=== PATIENT | female | born 1935 | race Caucasian/White ===

== ENCOUNTER 2018-08-04 12:09 | Observation (INO) | payer MEDICARE, OTHER ==
[2018-08-04] MEDS ORDERED: SODIUM CHLORIDE 0.9% 500 ML 500 ML IV ONE (13:04)
--- NOTE | 2018-08-04 13:08 | ED ---
General Adult HPI - General Chief complaint: Altered Mental Status Stated complaint: Confusion, Low BP Time Seen by Provider: 08/04/18 12:25 Source: family, RN notes reviewed Mode of arrival: wheelchair Limitations: no limitations - History of Present Illness Initial comments: This is an 82-year-old female presents emergency Department with her daughter patient was diagnosed with urinary tract infection last week and some slight confusion according to the daughter though she continues antibiotics the patient is more confused over the last 2 days. Daughter states yesterday she thought there was a little girl in the room and actually went to help her and fell over. According to the daughter the patient had no injury. Patient denies any pain daughter states the patient is not complaining of any pain to her patient has had no difficulty breathing or shortness of breath there's been no fever chills today. Daughter states couple days ago she did have a slight fever. There's been no areas of rash redness or breakdown. Rations had no vomiting or diarrhea. According to the daughter the patient has had a cough recently. - Related Data Home Medications Medication Instructions Recorded Confirmed Levothyroxine Sodium [Synthroid] 75 mcg PO DAILY@0600 04/04/14 08/04/18 Lisinopril [Prinivil] 20 mg PO DAILY@0600 04/04/14 08/04/18 Ondansetron [Zofran] 4 mg PO Q8H PRN 04/04/14 08/04/18 ALPRAZolam [Xanax] 0.25 mg PO HS 08/04/18 08/04/18 ALPRAZolam [Xanax] 0.25 mg PO Q4H PRN 08/04/18 08/04/18 Carbidopa-Levodopa 25-100 mg 2 tab PO BID@0900,1300 08/04/18 08/04/18 [Sinemet 25-100] Diltiazem Cd [Cardizem Cd] 180 mg PO HS 08/04/18 08/04/18 Domperidone 10mg 10 mg PO TID-W/MEALS 08/04/18 08/04/18 Escitalopram [Lexapro] 10 mg PO W/LUNCH 08/04/18 08/04/18 Estradiol [Yuvafem] 10 mcg VAGINAL MOWEFR 08/04/18 08/04/18 Membrasin 2 cap PO DAILY@0600 08/04/18 08/04/18 Mineral Oil 2 drops BOTH EARS DIRECTED 08/04/18 08/04/18 Nitrofurantoin Monohyd/M-Cryst 100 mg PO Q12HR 08/04/18 08/04/18 [Macrobid] Nystatin 100,000 Unit/gm Powd 1 applic TOPICAL BID PRN 08/04/18 08/04/18 [Mycostatin Powder] Polyethylene Glycol 3350 [Miralax] 8.5 gm PO Q72H 08/04/18 08/04/18 Warfarin [Coumadin] 5 mg PO DAILY 08/04/18 08/04/18 guaiFENesin [Mucinex] 600 mg PO HS 08/04/18 08/04/18 hydrALAZINE HCL 25 mg PO TID-W/MEALS 08/04/18 08/04/18 Allergies Allergy/AdvReac Type Severity Reaction Status Date / Time amlodipine [From Norvasc] Allergy Unknown Verified 08/04/18 14:11 cefdinir [From Omnicef] Allergy Nausea & Verified 08/04/18 14:11 Vomiting iodine Allergy Rapid Verified 08/04/18 14:11 Heart Rate levofloxacin [From Levaquin] Allergy Nausea & Verified 08/04/18 14:11 Vomiting & Diarrhea Penicillins Allergy Rash/Hives Verified 08/04/18 14:11 Sulfa (Sulfonamide Allergy HIIVES Verified 08/04/18 14:11 Antibiotics) sulfamethoxazole Allergy Unknown Verified 08/04/18 14:11 [From Bactrim] trimethoprim [From Bactrim] Allergy Unknown Verified 08/04/18 14:11 metoclopramide HCl AdvReac FACAIL Verified 08/04/18 14:11 [From Reglan] Review of Systems ROS Statement: Those systems with pertinent positive or pertinent negative responses have been documented in the HPI. ROS Other: All systems not noted in ROS Statement are negative. Past Medical History Past Medical History: GERD/Reflux, Hyperlipidemia, Hypertension, Rheumatoid Arthritis (RA), Thyroid Disorder Additional Past Medical History / Comment(s): "Has ascending aortic aneurysm" History of Any Multi-Drug Resistant Organisms: None Reported Past Surgical History: Appendectomy, Back Surgery, Orthopedic Surgery, Tonsillectomy Additional Past Surgical History / Comment(s): RIGHT LEG SURGERY, EGD Past Anesthesia/Blood Transfusion Reactions: No Reported Reaction Past Psychological History: No Psychological Hx Reported Smoking Status: Never smoker Past Alcohol Use History: None Reported Past Drug Use History: None Reported - Past Family History Father Family Medical History: Myocardial Infarction ([place]) Mother Family Medical History: No Reported History General Exam - General Exam Comments Initial Comments: GENERAL: Patient is well-developed and well-nourished. Patient is nontoxic and well- hydrated and is in no acute distress. ENT: Neck is soft and supple. No significant lymphadenopathy is noted. Oropharynx is clear. Moist mucous membranes. Neck has full range of motion without eliciting any pain. EYES: The sclera were anicteric and conjunctiva were pink and moist. Extraocular movements were intact and pupils were equal round and reactive to light. Eyelids were unremarkable. PULMONARY: Unlabored respirations. Patient has some crackles in the left base. CARDIOVASCULAR: There is a regular rate and rhythm without any murmurs gallops or rubs. ABDOMEN: Soft and nontender with normal bowel sounds. SKIN: Skin is clear with no lesions or rashes and otherwise unremarkable. NEUROLOGIC: Patient is alert and oriented 2. Cranial nerves II through XII are grossly intact. Motor and sensory are also intact. Normal speech, volume and content. Symmetrical smile. MUSCULOSKELETAL: Normal extremities with adequate strength and full range of motion. No lower extremity swelling or edema. No calf tenderness. LYMPHATICS: No significant lymphadenopathy is noted PSYCHIATRIC: Normal psychiatric evaluation. Limitations: no limitations Course Vital Signs 08/04/18 08/04/18 08/04/18 12:23 14:05 14:52 Temperature 98.3 F Pulse Rate 96 74 Respiratory 18 16 16 Rate Blood Pressure 87/58 115/69 142/75 O2 Sat by Pulse 96 97 98 Oximetry Medical Decision Making - Medical Decision Making EKG shows normal sinus rhythm at 67 bpm IA interval is 206 QRS is 86 QTC is 46 QTC is 429. Patient has no ST segment elevation or depression. CT of the brain shows no acute abnormality. I spoke with because he agreed to admit the patient admitted the patient wrote admitting orders. - Lab Data Result diagrams: 08/04/18 14:43 08/04/18 14:43 Lab Results 08/04/18 08/04/18 08/04/18 Range/Units 14:43 14:43 14:43 WBC 5.3 (3.8-10.6) k/uL RBC 4.66 (3.80-5.40) m/uL Hgb 12.8 (11.4-16.0) gm/dL Hct 43.0 (34.0-46.0) % MCV 92.3 (80.0-100.0) fL MCH 27.5 (25.0-35.0) pg MCHC 29.7 L (31.0-37.0) g/dL RDW 14.1 (11.5-15.5) % Plt Count 265 (150-450) k/uL Neutrophils % 63 % Lymphocytes % 26 % Monocytes % 7 % Eosinophils % 2 % Basophils % 0 % Neutrophils # 3.3 (1.3-7.7) k/uL Lymphocytes # 1.4 (1.0-4.8) k/uL Monocytes # 0.4 (0-1.0) k/uL Eosinophils # 0.1 (0-0.7) k/uL Basophils # 0.0 (0-0.2) k/uL Hypochromasia Slight PT 25.4 H (9.0-12.0) sec INR 2.6 H (<1.2) APTT 34.8 H (22.0-30.0) sec Sodium 138 (137-145) mmol/L Potassium 4.6 (3.5-5.1) mmol/L Chloride 105 (98-107) mmol/L Carbon Dioxide 26 (22-30) mmol/L Anion Gap 7 mmol/L BUN 20 H (7-17) mg/dL Creatinine 0.78 (0.52-1.04) mg/dL Est GFR (CKD-EPI)AfAm 82 (>60 ml/min/1.73 sqM) Est GFR (CKD-EPI)NonAf 71 (>60 ml/min/1.73 sqM) Glucose 101 H (74-99) mg/dL Plasma Lactic Acid Yonny (0.7-2.0) mmol/L Calcium 9.7 (8.4-10.2) mg/dL Total Bilirubin 0.5 (0.2-1.3) mg/dL AST 26 (14-36) U/L ALT 10 (9-52) U/L Alkaline Phosphatase 57 (38-126) U/L Troponin I (0.000-0.034) ng/mL Total Protein 5.8 L (6.3-8.2) g/dL Albumin 3.6 (3.5-5.0) g/dL Urine Color Urine Appearance (Clear) Urine pH (5.0-8.0) Ur Specific [place] (1.001-1.035) Urine Protein (Negative) Urine Glucose (UA) (Negative) Urine Ketones (Negative) Urine Blood (Negative) Urine Nitrite (Negative) Urine Bilirubin (Negative) Urine Urobilinogen (<2.0) mg/dL Ur Leukocyte Esterase (Negative) Urine RBC (0-5) /hpf Urine WBC (0-5) /hpf Ur Squamous Epith Cells (0-4) /hpf Urine Bacteria (None) /hpf Urine Mucus (None) /hpf Urine Opiates Screen (NotDetected) Ur Oxycodone Screen (NotDetected) Urine Methadone Screen (NotDetected) Ur Propoxyphene Screen (NotDetected) Ur Barbiturates Screen (NotDetected) U Tricyclic Antidepress (NotDetected) Ur Phencyclidine Scrn (NotDetected) Ur Amphetamines Screen (NotDetected) U Methamphetamines Scrn (NotDetected) U Benzodiazepines Scrn (NotDetected) Urine Cocaine Screen (NotDetected) U Marijuana (THC) Screen (NotDetected) 08/04/18 08/04/18 08/04/18 Range/Units 14:43 14:43 16:00 WBC (3.8-10.6) k/uL RBC (3.80-5.40) m/uL Hgb (11.4-16.0) gm/dL Hct (34.0-46.0) % MCV (80.0-100.0) fL MCH (25.0-35.0) pg MCHC (31.0-37.0) g/dL RDW (11.5-15.5) % Plt Count (150-450) k/uL Neutrophils % % Lymphocytes % % Monocytes % % Eosinophils % % Basophils % % Neutrophils # (1.3-7.7) k/uL Lymphocytes # (1.0-4.8) k/uL Monocytes # (0-1.0) k/uL Eosinophils # (0-0.7) k/uL Basophils # (0-0.2) k/uL Hypochromasia PT (9.0-12.0) sec INR (<1.2) APTT (22.0-30.0) sec Sodium (137-145) mmol/L Potassium (3.5-5.1) mmol/L Chloride (98-107) mmol/L Carbon Dioxide (22-30) mmol/L Anion Gap mmol/L BUN (7-17) mg/dL Creatinine (0.52-1.04) mg/dL Est GFR (CKD-EPI)AfAm (>60 ml/min/1.73 sqM) Est GFR (CKD-EPI)NonAf (>60 ml/min/1.73 sqM) Glucose (74-99) mg/dL Plasma Lactic Acid Yonny 1.0 (0.7-2.0) mmol/L Calcium (8.4-10.2) mg/dL Total Bilirubin (0.2-1.3) mg/dL AST (14-36) U/L ALT (9-52) U/L Alkaline Phosphatase (38-126) U/L Troponin I <0.012 (0.000-0.034) ng/mL Total Protein (6.3-8.2) g/dL Albumin (3.5-5.0) g/dL Urine Color Yellow Urine Appearance Clear (Clear) Urine pH 5.5 (5.0-8.0) Ur Specific [place] 1.010 (1.001-1.035) Urine Protein Negative (Negative) Urine Glucose (UA) Negative (Negative) Urine Ketones Negative (Negative) Urine Blood Negative (Negative) Urine Nitrite Negative (Negative) Urine Bilirubin Negative (Negative) Urine Urobilinogen <2.0 (<2.0) mg/dL Ur Leukocyte Esterase Trace H (Negative) Urine RBC 4 (0-5) /hpf Urine WBC 1 (0-5) /hpf Ur Squamous Epith Cells 3 (0-4) /hpf Urine Bacteria Rare H (None) /hpf Urine Mucus Occasional H (None) /hpf Urine Opiates Screen Not Detected (NotDetected) Ur Oxycodone Screen Not Detected (NotDetected) Urine Methadone Screen Not Detected (NotDetected) Ur Propoxyphene Screen Not Detected (NotDetected) Ur Barbiturates Screen Not Detected (NotDetected) U Tricyclic Antidepress Not Detected (NotDetected) Ur Phencyclidine Scrn Not Detected (NotDetected) Ur Amphetamines Screen Not Detected (NotDetected) U Methamphetamines Scrn Not Detected (NotDetected) U Benzodiazepines Scrn Detected H (NotDetected) Urine Cocaine Screen Not Detected (NotDetected) U Marijuana (THC) Screen Not Detected (NotDetected) Disposition Clinical Impression: Altered mental status Disposition: ADMITTED IP TO THIS HOSP Referrals: Scarlet Maldonado MD [Primary Care Provider] - 1-2 days Time of Disposition: 16:35
--- NOTE | 2018-08-04 14:38 | CT ---
EXAMINATION TYPE: CT brain wo con DATE OF EXAM: 08/04/2018 HISTORY: Confusion, Low Blood pressure CT DLP: 1126.4 mGycm. Automated Exposure Control for Dose Reduction was Utilized. TECHNIQUE: CT scan of the head is performed without contrast. COMPARISON: None. FINDINGS: There is no acute intracranial hemorrhage or midline shift identified. There is diffuse v entricular and sulcal prominence consistent with diffuse age-related cerebral atrophy. There is low- attenuation in the periventricular white matter consistent with chronic small vessel ischemic change. There is suspected 1.8 x 1.6 cm ossified left frontal meningioma axial image 25 along the anterior i nterhemispheric fissure The globes are intact and the visualized sinuses are clear. IMPRESSION: No acute intracranial hemorrhage or midline shift. There is mild to moderate diffuse ag e-related cerebral atrophy and chronic small vessel ischemic change as well as 1.8 cm ossified left f rontal meningioma all noted.
--- NOTE | 2018-08-04 14:50 | XR ---
EXAMINATION TYPE: XR chest 2V DATE OF EXAM: 08/04/2018 COMPARISON: Chest x-ray and CTA chest August 21, 2015 HISTORY: Weakness and altered mental status TECHNIQUE: Frontal and lateral views of the chest are obtained. FINDINGS: The osseous structures remain demineralized. S-shaped scoliosis is again seen. Retrocardia c opacity consistent with moderate to large size hiatal hernia is again identified. Cardiac silhouett e size is upper limits of normal with atherosclerotic and ectatic thoracic aorta. There is chronic pa renchymal change without suspicious focal airspace opacity, pleural effusion, or pneumothorax identif ied bilaterally. Some elevation and eventration right hemidiaphragm is redemonstrated. IMPRESSION: Chronic changes without new acute pulmonary process.
[2018-08-04 15:00] LABS: Basophils % (A) 0 %; Eosinophils # (A) 0.1 k/uL (0-0.7); Eosinophils % (A) 2 %; HGB 12.8 gm/dL (11.4-16.0); Hypochromasia Slight; Lymphocytes # (A) 1.4 k/uL (1.0-4.8); Lymphocytes % (A) 26 %; MCH 27.5 pg (25.0-35.0); MCHC 29.7 g/dL (31.0-37.0); MCV 92.3 fL (80.0-100.0); Mean Platelet Volume 6.7; Monocytes # (A) 0.4 k/uL (0-1.0); Monocytes % (A) 7 %; Neutrophils # (A) 3.3 k/uL (1.3-7.7); Neutrophils % (A) 63 %; Platelet Count 265 k/uL (150-450); RBC 4.66 m/uL (3.80-5.40); RDW 14.1 % (11.5-15.5); WBC 5.3 k/uL (3.8-10.6)
[2018-08-04 15:07] LABS: INR 2.6 (<1.2); Partial Thromboplastin Time 34.8 sec (22.0-30.0); Prothrombin Time 25.4 sec (9.0-12.0)
[2018-08-04 15:15] LABS: Albumin 3.6 g/dL (3.5-5.0); Calcium 9.7 mg/dL (8.4-10.2); Potassium 4.6 mmol/L (3.5-5.1); Total Bilirubin 0.5 mg/dL (0.2-1.3); Total Protein 5.8 g/dL (6.3-8.2)
[2018-08-04] MEDS ORDERED: NYSTATIN 100,000 UNIT/GM POWD 15 GM TOPICAL PRN (15:31)
[2018-08-04] MEDS ORDERED: QUEtiapine 25 MG TAB PO PRN (15:36)
--- NOTE | 2018-08-04 15:43 | P.HPIM ---
History of Present Illness 82-year-old pleasant female came in with possibility of confusion. Daughter brought her here. Because she believed her confusion is worse patient was treated for UTI about a week ago was subsequently discharged in spite of her treating UTI her symptoms continued to worse and patient was hallucinating had visual hallucinations saw a little girl in the room yesterday evening. 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 Patient had a recent C. diff history as well. UA is not available at this point of time patient is on Xanax. Patient was diagnosed with Parkinson's about 6-8 months ago. Patient doesn't appear to be dehydrated clinically. Review of Systems REVIEW OF SYSTEMS: CONSTITUTIONAL: No fever, no malaise, no fatigue. HEENT: No recent visual problems or hearing problems. Denied any sore throat. CARDIOVASCULAR: No chest pain, orthopnea, PND, no palpitations, no syncope. PULMONARY: No shortness of breath, no cough, no hemoptysis. GASTROINTESTINAL: No diarrhea, no nausea, no vomiting, no abdominal pain. NEUROLOGICAL: No headaches, no weakness, no numbness. HEMATOLOGICAL: Denies any bleeding or petechiae. GENITOURINARY: Denies any burning micturition, frequency, or urgency. MUSCULOSKELETAL/RHEUMATOLOGICAL: Denies any joint pain, swelling, or any muscle pain. ENDOCRINE: Denies any polyuria or polydipsia. The rest of the 14-point review of systems is negative. Past Medical History Past Medical History: GERD/Reflux, Hyperlipidemia, Hypertension, Rheumatoid Arthritis (RA), Thyroid Disorder Additional Past Medical History / Comment(s): "Has ascending aortic aneurysm" History of Any Multi-Drug Resistant Organisms: None Reported Past Surgical History: Appendectomy, Back Surgery, Orthopedic Surgery, Tonsillectomy Additional Past Surgical History / Comment(s): RIGHT LEG SURGERY, EGD Past Anesthesia/Blood Transfusion Reactions: No Reported Reaction Past Psychological History: No Psychological Hx Reported Smoking Status: Never smoker Past Alcohol Use History: None Reported Past Drug Use History: None Reported - Past Family History Father Family Medical History: Myocardial Infarction ([place]) Mother Family Medical History: No Reported History Medications and Allergies Home Medications Medication Instructions Recorded Confirmed Type Levothyroxine Sodium [Synthroid] 75 mcg PO DAILY@0600 04/04/14 08/04/18 History Lisinopril [Prinivil] 20 mg PO DAILY@0600 04/04/14 08/04/18 History Ondansetron [Zofran] 4 mg PO Q8H PRN 04/04/14 08/04/18 History ALPRAZolam [Xanax] 0.25 mg PO HS 08/04/18 08/04/18 History ALPRAZolam [Xanax] 0.25 mg PO Q4H PRN 08/04/18 08/04/18 History Carbidopa-Levodopa 25-100 mg 2 tab PO BID@0900,1300 08/04/18 08/04/18 History [Sinemet 25-100] Diltiazem Cd [Cardizem Cd] 180 mg PO HS 08/04/18 08/04/18 History Domperidone 10mg 10 mg PO TID-W/MEALS 08/04/18 08/04/18 History Escitalopram [Lexapro] 10 mg PO W/LUNCH 08/04/18 08/04/18 History Estradiol [Yuvafem] 10 mcg VAGINAL MOWEFR 08/04/18 08/04/18 History Membrasin 2 cap PO DAILY@0600 08/04/18 08/04/18 History Mineral Oil 2 drops BOTH EARS DIRECTED 08/04/18 08/04/18 History Nitrofurantoin Monohyd/M-Cryst 100 mg PO Q12HR 08/04/18 08/04/18 History [Macrobid] Nystatin 100,000 Unit/gm Powd 1 applic TOPICAL BID PRN 08/04/18 08/04/18 History [Mycostatin Powder] Polyethylene Glycol 3350 [Miralax] 8.5 gm PO Q72H 08/04/18 08/04/18 History Warfarin [Coumadin] 5 mg PO DAILY 08/04/18 08/04/18 History guaiFENesin [Mucinex] 600 mg PO HS 08/04/18 08/04/18 History hydrALAZINE HCL 25 mg PO TID-W/MEALS 08/04/18 08/04/18 History Allergies Allergy/AdvReac Type Severity Reaction Status Date / Time amlodipine [From Norvasc] Allergy Unknown Verified 08/04/18 14:11 cefdinir [From Omnicef] Allergy Nausea & Verified 08/04/18 14:11 Vomiting iodine Allergy Rapid Verified 08/04/18 14:11 Heart Rate levofloxacin [From Levaquin] Allergy Nausea & Verified 08/04/18 14:11 Vomiting & Diarrhea Penicillins Allergy Rash/Hives Verified 08/04/18 14:11 Sulfa (Sulfonamide Allergy HIIVES Verified 08/04/18 14:11 Antibiotics) sulfamethoxazole Allergy Unknown Verified 08/04/18 14:11 [From Bactrim] trimethoprim [From Bactrim] Allergy Unknown Verified 08/04/18 14:11 metoclopramide HCl AdvReac FACAIL Verified 08/04/18 14:11 [From Reglan] Physical Exam Vitals: Vital Signs Temp Pulse Resp BP Pulse Ox 08/04/18 14:52 74 16 142/75 98 08/04/18 14:05 16 115/69 97 08/04/18 12:23 98.3 F 96 18 87/58 96 Intake and Output 08/04/18 08/04/18 08/04/18 06:59 14:59 22:59 Other: Weight 58.967 kg PHYSICAL EXAMINATION: GENERAL: The patient is alert and oriented x3, not in any acute distress. Well developed, well nourished. Although does have memory difficulties HEENT: Pupils are round and equally reacting to light. EOMI. No scleral icterus. No conjunctival pallor. Normocephalic, atraumatic. No pharyngeal erythema. No thyromegaly. CARDIOVASCULAR: S1 and S2 present. No murmurs, rubs, or gallops. PULMONARY: Chest is clear to auscultation, no wheezing or crackles. ABDOMEN: Soft, nontender, nondistended, normoactive bowel sounds. No palpable organomegaly. MUSCULOSKELETAL: No joint swelling or deformity. EXTREMITIES: No cyanosis, clubbing, or pedal edema. NEUROLOGICAL: Gross neurological examination did not reveal any focal deficits. SKIN: No rashes. Results CBC & Chem 7: 08/04/18 14:43 08/04/18 14:43 Labs: Abnormal Lab Results - Last 24 Hours (Table) 0308/04/18 08/04/18 Range/Units 14:43 14:43 14:43 MCHC 29.7 L (31.0-37.0) g/dL PT 25.4 H (9.0-12.0) sec INR 2.6 H (<1.2) APTT 34.8 H (22.0-30.0) sec BUN 20 H (7-17) mg/dL Glucose 101 H (74-99) mg/dL Total Protein 5.8 L (6.3-8.2) g/dL Assessment and Plan Plan: -Altered mental status probably toxic encephalopathy from medications. Patient may have multifactorial encephalopathy and confusion related to Xanax and may be related to worsening Lewy body dementia. My suspicion is extremely low for her UTI with UA is pending patient does not have any other signs or symptoms of infection at this time patient is presently not dehydrated avoid Xanax Will use low-dose of atypical antipsychotic if needed for agitation or hallucinations. Although there still remains concerned of extrapyramidal side effects, considering patient's history of Parkinson's. Patient is also on Domperidone an d ondansetron because of concern for excessive renal side effects will watch the patient without these 2 medications. -Parkinson's: Continue her antiparkinsonian medications and avoid above- mentioned medications. [place]-gastroesophageal reflux disease -Hyperlipidemia -Hypertension -hypothyroidism Patient will need pharmacologic DVT prophylaxis
[2018-08-04] MEDS ORDERED: ESTRADIOL 10 MCG VAGINAL SCH (15:45)
[2018-08-04 16:20] LABS: Appearance,Urine Clear (Clear); Bacteria,Urine Rare /hpf; Bilirubin,Urine Negative (Negative); Blood,Urine Negative (Negative); Color,Urine Yellow; Glucose,Urine (UA) Negative (Negative); Ketones,Urine Negative (Negative); Leukocyte Esterase,Urine Trace (Negative); Mucus,Urine Occasional /hpf; Nitrite,Urine Negative (Negative); PH, Urine 5.5 (5.0-8.0); Protein,Urine Negative (Negative); RBC,Urine 4 /hpf (0-5); Squamous Epithelial Cell,Urine 3 /hpf (0-4); Urobilinogen,Urine <2.0 mg/dL (<2.0); WBC,Urine 1 /hpf (0-5)
[2018-08-04 16:27] LABS: Amphetamine Screen,Urine Not Detected (NotDetected); Barbiturate Screen,Urine Not Detected (NotDetected); Benzodiazepines Screen,Urine Detected (NotDetected); Cocaine Screen,Urine Not Detected (NotDetected); Methadone Screen, Urine Not Detected (NotDetected); Opiate Screen,Urine Not Detected (NotDetected); Oxycodone Screen, Urine Not Detected (NotDetected); Phencyclidine Screen,Urine Not Detected (NotDetected); Tricyclic Antidepressant,Urine Not Detected (NotDetected); Urn Cannabinoid Scrn Not Detected (NotDetected)
[2018-08-04] MEDS ORDERED: SODIUM CHLORIDE 0.9% 1,000 ML IV ONE (16:36)
[2018-08-04] MEDS ORDERED: ACETAMINOPHEN TAB 325 MG TAB PO STA (17:11)
[2018-08-04] MEDS ORDERED: DILTIAZEM CD 180 MG CAP.ER.24H PO SCH (21:00)
[2018-08-04] MEDS ORDERED: guaiFENesin 600 MG TABLET.ER PO SCH (21:00)
[2018-08-04] MEDS: hydrALAZINE HCL 25 MG TAB PO SCH (22:00)
[2018-08-05] MEDS ORDERED: LISINOPRIL 20 MG TAB PO SCH (06:00)
[2018-08-05] MEDS ORDERED: LEVOTHYROXINE 75 MCG TAB PO SCH (06:00)
[2018-08-05] MEDS ORDERED: [UNRECOGNIZED DRUG - OTHER] PO SCH (06:00)
[2018-08-05 06:31] VITALS: BP 119/70; PULSE 74; RESP 20; TEMP 97.7
[2018-08-05] MEDS: hydrALAZINE HCL 25 MG TAB PO SCH ×2 (09:35→11:48)
[2018-08-05] MEDS: CARBIDOPA-LEVODOPA 25-100 MG 1 EACH TAB PO SCH ×2 (09:35→11:48)
[2018-08-05 09:59] LABS: INR 2.5 (<1.2); Prothrombin Time 24.3 sec (9.0-12.0)
[2018-08-05] MEDS ORDERED: ESCITALOPRAM 10 MG TAB PO SCH (12:30)
--- NOTE | 2018-08-05 13:10 | P.DS ---
Providers Date of admission: 08/04/18 16:45 Attending physician: Simone Pool Consults: 08/05/18 10:37 Consult Physician Routine Consulting Provider: Les Jernigan Consult Reason/Comments: med reccomendation, hallucinations Do you want consulting provider notified?: Yes Primary care physician: Scarlet Maldonado [facility] Course: 82-year-old pleasant female came in with possibility of confusion. Daughter brought her here. Because she believed her confusion is worse patient was treated for UTI about a week ago was subsequently discharged in spite of her treating UTI her symptoms continued to worse and patient was hallucinating had visual hallucinations saw a little girl in the room yesterday evening. 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 Patient had a recent C. diff history as well. UA is not available at this point of time patient is on Xanax. Patient was diagnosed with Parkinson's about 6-8 months ago. Patient doesn't appear to be dehydrated clinically. 08/05/2018 Patient was having hallucinations. No evidence of any sepsis or urinary tract infection patient will not require any antibiotics patient Xanax will be discontinued. Psychiatrist was able to give recommendations on phone and he is recommending 12.5 twice a day of Seroquel. Patient's family will be instructed to discontinue Seroquel if she gets more drowsy lethargic but she'll be initiated on low-dose of Seroquel twice a day on scheduled basis. Patient is alert oriented 3 PHYSICAL EXAMINATION: GENERAL: The patient is alert and oriented x3, not in any acute distress. Thin built HEENT: Pupils are round and equally reacting to light. EOMI. No scleral icterus. No conjunctival pallor. Normocephalic, atraumatic. No pharyngeal erythema. No thyromegaly. CARDIOVASCULAR: S1 and S2 present. No murmurs, rubs, or gallops. PULMONARY: Chest is clear to auscultation, no wheezing or crackles. ABDOMEN: Soft, nontender, nondistended, normoactive bowel sounds. No palpable organomegaly. MUSCULOSKELETAL: No joint swelling or deformity. EXTREMITIES: No cyanosis, clubbing, or pedal edema. NEUROLOGICAL: Gross neurological examination did not reveal any focal deficits. SKIN: No rashes. Assessment and Plan Plan: -Altered mental status probably toxic encephalopathy from medications. Patient may have multifactorial encephalopathy and confusion related to Xanax and may be related to worsening Lewy body dementia. 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 -Parkinson's: Continue her antiparkinsonian medications and avoid above- mentioned medications. [place] will be discontinued and patient the can continue on as-needed basis Zofran. -gastroesophageal reflux disease -Hyperlipidemia -Hypertension -hypothyroidism -Atrial fibrillation probably paroxysmal rate controlled continue on Coumadin, therapeutic on Coumadin Plan - Discharge Summary New Discharge Prescriptions: New QUEtiapine [SEROquel] 12.5 mg PO HS PRN #30 tab PRN Reason: Agitation Continue Ondansetron [Zofran] 4 mg PO Q8H PRN PRN Reason: Nausea Lisinopril [Prinivil] 20 mg PO DAILY@0600 Levothyroxine Sodium [Synthroid] 75 mcg PO DAILY@0600 Membrasin 2 cap PO DAILY@0600 Carbidopa-Levodopa 25-100 mg [Sinemet 25-100 mg] 2 tab PO BID@0900,1300 Diltiazem Cd [Cardizem CD] 180 mg PO HS Escitalopram [Lexapro] 10 mg PO W/LUNCH Estradiol [Yuvafem] 10 mcg VAGINAL MOWEFR guaiFENesin [Mucinex] 600 mg PO HS Mineral Oil 2 drops BOTH EARS DIRECTED Nystatin 100,000 Unit/gm Powd [Mycostatin Powder] 1 applic TOPICAL BID PRN PRN Reason: RASH UNDER BREAST Polyethylene Glycol 3350 [Miralax] 8.5 gm PO Q72H Warfarin [Coumadin] 5 mg PO DAILY Discontinued Domperidone 10mg 10 mg PO TID-W/MEALS ALPRAZolam [Xanax] 0.25 mg PO Q4H PRN PRN Reason: Anxiety ALPRAZolam [Xanax] 0.25 mg PO HS hydrALAZINE HCL 25 mg PO TID-W/MEALS Nitrofurantoin Monohyd/M-Cryst [Macrobid] 100 mg PO Q12HR Discharge Medication List Levothyroxine Sodium [Synthroid] 75 mcg PO DAILY@0600 04/04/14 [History] Lisinopril [Prinivil] 20 mg PO DAILY@0600 04/04/14 [History] Ondansetron [Zofran] 4 mg PO Q8H PRN 04/04/14 [History] Carbidopa-Levodopa 25-100 mg [Sinemet 25-100 mg] 2 tab PO BID@0900,1300 08/04/18 [History] Diltiazem Cd [Cardizem CD] 180 mg PO HS 08/04/18 [History] Escitalopram [Lexapro] 10 mg PO W/LUNCH 08/04/18 [History] Estradiol [Yuvafem] 10 mcg VAGINAL MOWEFR 08/04/18 [History] Membrasin 2 cap PO DAILY@0600 08/04/18 [History] Mineral Oil 2 drops BOTH EARS DIRECTED 08/04/18 [History] Nystatin 100,000 Unit/gm Powd [Mycostatin Powder] 1 applic TOPICAL BID PRN 08/04/18 [History] Polyethylene Glycol 3350 [Miralax] 8.5 gm PO Q72H 08/04/18 [History] Warfarin [Coumadin] 5 mg PO DAILY 08/04/18 [History] guaiFENesin [Mucinex] 600 mg PO HS 08/04/18 [History] QUEtiapine [SEROquel] 12.5 mg PO HS PRN #30 tab 08/05/18 [Rx] Follow up Appointment(s)/Referral(s): Scarlet Maldonado MD [Primary Care Provider] - 3 Days Patient Instructions/Handouts: Dementia (GEN) Activity/Diet/Wound Care/Special Instructions: ACTIVITY AND DIET TOLERATED. RECOMMEND NOT TAKING XANAX. Discharge Disposition: OTHER INSTITUTION NOT DEFINED
[2018-08-05] MEDS ORDERED: WARFARIN 5 MG TAB PO SCH (18:00)
[2018-08-05] MEDS ORDERED: QUEtiapine 25 MG TAB PO SCH (21:00)
[2018-08-06] MEDS ORDERED: POLYETHYLENE GLYCOL 3350 17 GM POWD.PACK PO PRN (09:00)
== END 2018-08-05 15:44 | disposition home or self-care (01) ==
LOC: EC 12:09 → 4MS4W 16:45
PROVIDERS: ADMIT Internal Medicine; ATTEND Internal Medicine
DX: R41.82 Altered mental status, unspecified (principal); R44.1 Visual hallucinations; G20 Parkinson's disease; R05 Cough; K21.9 Gastro-esophageal reflux disease without esophagitis; E78.5 Hyperlipidemia, unspecified; I10 Essential (primary) hypertension; E03.9 Hypothyroidism, unspecified; I48.91 Unspecified atrial fibrillation; F03.90 Unspecified dementia, unspecified severity, without behavioral disturbance, psychotic disturbance, mood disturbance, and anxiety; L43.9 Lichen planus, unspecified; M06.9 Rheumatoid arthritis, unspecified; I71.2 Thoracic aortic aneurysm, without rupture; Z79.890 Hormone replacement therapy; Z79.899 Other long term (current) drug therapy; Z79.01 Long term (current) use of anticoagulants; Z88.1 Allergy status to other antibiotic agents; Z88.0 Allergy status to penicillin; Z88.2 Allergy status to sulfonamides; Z88.8 Allergy status to other drugs, medicaments and biological substances; Z91.048 Other nonmedicinal substance allergy status; Z82.49 Family history of ischemic heart disease and other diseases of the circulatory system; Z91.81 History of falling; Z87.440 Personal history of urinary (tract) infections; Z86.19 Personal history of other infectious and parasitic diseases
CPT/HCPCS: 96361 ×3; 96360; 99285; 36415; 93005; 97166; 80053; 83605; 84484; 85025; 85610 ×2; 85730; 81001; 87040; 80306; 71046; 70450; G0378 ×2

== ENCOUNTER 2019-12-23 06:56 | Observation (INO) | payer MEDICARE, OTHER ==
--- NOTE | 2019-12-23 07:19 | ED ---
Fall HPI - General Chief Complaint: Fall Stated Complaint: Fall Time Seen by Provider: 12/23/19 07:00 Source: patient, EMS, RN notes reviewed Mode of arrival: EMS Limitations: no limitations - History of Present Illness Initial Comments: This an 84-year-old female presents emergency Department with chief complaint of fall. Patient was found by staff at [facility] the ground. They believe she fell around 6 AM. Patient states that she has a mild headache in her hips her. Patient does have some baseline confusion related to dementia. Patient denies any nausea vomiting diarrhea constipation. Denies any bleeding. Patient reports "thinners. Patient denies any lower extremity pain, upper extremity pain. - Related Data Home Medications Medication Instructions Recorded Confirmed Levothyroxine Sodium [Synthroid] 75 mcg PO DAILY@0600 04/04/14 08/04/18 Ondansetron [Zofran] 4 mg PO Q8H PRN 04/04/14 08/04/18 lisinopriL [Prinivil] 20 mg PO DAILY@0600 04/04/14 08/04/18 Carbidopa-Levodopa 25-100 mg 2 tab PO BID@0900,1300 08/04/18 08/04/18 [Sinemet 25-100 mg] Diltiazem Cd [Cardizem CD] 180 mg PO HS 08/04/18 08/04/18 Escitalopram [Lexapro] 10 mg PO W/LUNCH 08/04/18 08/04/18 Estradiol [Yuvafem] 10 mcg VAGINAL MOWEFR 08/04/18 08/04/18 Membrasin 2 cap PO DAILY@0600 08/04/18 08/04/18 Mineral Oil 2 drops BOTH EARS DIRECTED 08/04/18 08/04/18 Nystatin 100,000 Unit/gm Powd 1 applic TOPICAL BID PRN 08/04/18 08/04/18 [Mycostatin Powder] Polyethylene Glycol 3350 [Miralax] 8.5 gm PO Q72H 08/04/18 08/04/18 Warfarin [Coumadin] 5 mg PO DAILY 08/04/18 08/04/18 guaiFENesin [Mucinex] 600 mg PO HS 08/04/18 08/04/18 Previous Rx's Medication Instructions Recorded QUEtiapine [SEROquel] 12.5 mg PO HS PRN #30 tab 08/05/18 Allergies Allergy/AdvReac Type Severity Reaction Status Date / Time amlodipine [From Norvasc] Allergy Unknown Verified 08/04/18 14:11 cefdinir [From Omnicef] Allergy Nausea & Verified 08/04/18 14:11 Vomiting iodine Allergy Rapid Verified 08/04/18 14:11 Heart Rate levofloxacin [From Levaquin] Allergy Nausea & Verified 08/04/18 14:11 Vomiting & Diarrhea Penicillins Allergy Rash/Hives Verified 08/04/18 14:11 Sulfa (Sulfonamide Allergy HIIVES Verified 08/04/18 14:11 Antibiotics) sulfamethoxazole Allergy Unknown Verified 08/04/18 14:11 [From Bactrim] trimethoprim [From Bactrim] Allergy Unknown Verified 08/04/18 14:11 metoclopramide HCl AdvReac FACAIL Verified 08/04/18 14:11 [From Reglan] Review of Systems ROS Statement: Those systems with pertinent positive or pertinent negative responses have been documented in the HPI. ROS Other: All systems not noted in ROS Statement are negative. Past Medical History Past Medical History: GERD/Reflux, Hyperlipidemia, Hypertension, Rheumatoid Arthritis (RA), Thyroid Disorder Additional Past Medical History / Comment(s): "Has ascending aortic aneurysm" History of Any Multi-Drug Resistant Organisms: None Reported Past Surgical History: Appendectomy, Back Surgery, Orthopedic Surgery, Tonsillectomy Additional Past Surgical History / Comment(s): RIGHT LEG SURGERY, EGD Past Anesthesia/Blood Transfusion Reactions: No Reported Reaction Past Psychological History: No Psychological Hx Reported Past Alcohol Use History: None Reported Past Drug Use History: None Reported - Past Family History Father Family Medical History: Myocardial Infarction (MT) Mother Family Medical History: No Reported History General Exam Limitations: altered mental status General appearance: alert, in no apparent distress, other (No obvious injuries) Head exam: Present: atraumatic, normocephalic, normal inspection Eye exam: Present: normal appearance, PERRL, EOMI. Absent: scleral icterus, conjunctival injection, periorbital swelling ENT exam: Present: normal exam, normal oropharynx, mucous membranes moist, TM's normal bilaterally Neck exam: Present: normal inspection. Absent: tenderness, meningismus, full ROM (Patient in c-collar), lymphadenopathy Respiratory exam: Present: normal lung sounds bilaterally. Absent: respiratory distress, wheezes, rales, rhonchi, stridor Cardiovascular Exam: Present: regular rate, normal rhythm, normal heart sounds. Absent: systolic murmur, diastolic murmur, rubs, gallop, clicks GI/Abdominal exam: Present: soft, normal bowel sounds. Absent: distended, tenderness, guarding, rebound, rigid Neurological exam: Present: alert, CN II-XII intact. Absent: oriented X3 Skin exam: Present: warm, dry, intact, normal color. Absent: rash Course Vital Signs 12/23/19 06:57 Temperature 98.1 F Pulse Rate 88 Respiratory 16 Rate Blood Pressure 160/87 O2 Sat by Pulse 95 Oximetry Medical Decision Making - Lab Data Result diagrams: 12/23/19 07:32 12/23/19 07:32 Lab Results 12/23/19 12/23/19 12/23/19 Range/Units 07:32 07:32 07:32 WBC 9.1 (3.8-10.6) k/uL RBC 5.06 (3.80-5.40) m/uL Hgb 14.3 (11.4-16.0) gm/dL Hct 44.8 (34.0-46.0) % MCV 88.4 (80.0-100.0) fL MCH 28.3 (25.0-35.0) pg MCHC 32.0 (31.0-37.0) g/dL RDW 15.0 (11.5-15.5) % Plt Count 257 (150-450) k/uL Neutrophils % 84 % Lymphocytes % 8 % Monocytes % 4 % Eosinophils % 2 % Basophils % 0 % Neutrophils # 7.7 (1.3-7.7) k/uL Lymphocytes # 0.8 L (1.0-4.8) k/uL Monocytes # 0.4 (0-1.0) k/uL Eosinophils # 0.2 (0-0.7) k/uL Basophils # 0.0 (0-0.2) k/uL Sodium 139 (137-145) mmol/L Potassium 4.4 (3.5-5.1) mmol/L Chloride 105 (98-107) mmol/L Carbon Dioxide 26 (22-30) mmol/L Anion Gap 8 mmol/L BUN 19 H (7-17) mg/dL Creatinine 0.73 (0.52-1.04) mg/dL Est GFR (CKD-EPI)AfAm 88 (>60 ml/min/1.73 sqM) Est GFR (CKD-EPI)NonAf 76 (>60 ml/min/1.73 sqM) Glucose 120 H (74-99) mg/dL Plasma Lactic Acid Yonny 1.6 (0.7-2.0) mmol/L Calcium 9.7 (8.4-10.2) mg/dL Total Bilirubin 0.7 (0.2-1.3) mg/dL AST 35 (14-36) U/L ALT 19 (4-34) U/L Alkaline Phosphatase 76 (38-126) U/L Creatine Kinase 351 H (30-135) U/L Total Protein 6.9 (6.3-8.2) g/dL Albumin 4.3 (3.5-5.0) g/dL Urine Color Urine Appearance (Clear) Urine pH (5.0-8.0) Ur Specific Gilbert (1.001-1.035) Urine Protein (Negative) Urine Glucose (UA) (Negative) Urine Ketones (Negative) Urine Blood (Negative) Urine Nitrite (Negative) Urine Bilirubin (Negative) Urine Urobilinogen (<2.0) mg/dL Ur Leukocyte Esterase (Negative) Urine WBC (0-5) /hpf Ur Squamous Epith Cells (0-4) /hpf Urine Bacteria (None) /hpf Urine Mucus (None) /hpf 12/23/19 Range/Units 08:15 WBC (3.8-10.6) k/uL RBC (3.80-5.40) m/uL Hgb (11.4-16.0) gm/dL Hct (34.0-46.0) % MCV (80.0-100.0) fL MCH (25.0-35.0) pg MCHC (31.0-37.0) g/dL RDW (11.5-15.5) % Plt Count (150-450) k/uL Neutrophils % % Lymphocytes % % Monocytes % % Eosinophils % % Basophils % % Neutrophils # (1.3-7.7) k/uL Lymphocytes # (1.0-4.8) k/uL Monocytes # (0-1.0) k/uL Eosinophils # (0-0.7) k/uL Basophils # (0-0.2) k/uL Sodium (137-145) mmol/L Potassium (3.5-5.1) mmol/L Chloride (98-107) mmol/L Carbon Dioxide (22-30) mmol/L Anion Gap mmol/L BUN (7-17) mg/dL Creatinine (0.52-1.04) mg/dL Est GFR (CKD-EPI)AfAm (>60 ml/min/1.73 sqM) Est GFR (CKD-EPI)NonAf (>60 ml/min/1.73 sqM) Glucose (74-99) mg/dL Plasma Lactic Acid Yonny (0.7-2.0) mmol/L Calcium (8.4-10.2) mg/dL Total Bilirubin (0.2-1.3) mg/dL AST (14-36) U/L ALT (4-34) U/L Alkaline Phosphatase (38-126) U/L Creatine Kinase (30-135) U/L Total Protein (6.3-8.2) g/dL Albumin (3.5-5.0) g/dL Urine Color Yellow Urine Appearance Cloudy H (Clear) Urine pH 6.5 (5.0-8.0) Ur Specific Gilbert 1.020 (1.001-1.035) Urine Protein Trace H (Negative) Urine Glucose (UA) Negative (Negative) Urine Ketones Trace H (Negative) Urine Blood Negative (Negative) Urine Nitrite Negative (Negative) Urine Bilirubin Negative (Negative) Urine Urobilinogen <2.0 (<2.0) mg/dL Ur Leukocyte Esterase Moderate H (Negative) Urine WBC 42 H (0-5) /hpf Ur Squamous Epith Cells <1 (0-4) /hpf Urine Bacteria Occasional H (None) /hpf Urine Mucus Occasional H (None) /hpf Disposition Clinical Impression: Fall, Weakness, UTI (urinary tract infection), Confusion Disposition: ADMITTED IP TO THIS HOSP Condition: Fair Referrals: Scarlet Maldonado MD [Primary Care Provider] - 1-2 days
[2019-12-23 07:42] LABS: Basophils % (A) 0 %; Eosinophils # (A) 0.2 k/uL (0-0.7); Eosinophils % (A) 2 %; HCT 44.8 % (34.0-46.0); HGB 14.3 gm/dL (11.4-16.0); Lymphocytes # (A) 0.8 k/uL (1.0-4.8); Lymphocytes % (A) 8 %; MCH 28.3 pg (25.0-35.0); MCV 88.4 fL (80.0-100.0); Mean Platelet Volume 7.5; Monocytes # (A) 0.4 k/uL (0-1.0); Monocytes % (A) 4 %; Neutrophils # (A) 7.7 k/uL (1.3-7.7); Neutrophils % (A) 84 %; Platelet Count 257 k/uL (150-450); RBC 5.06 m/uL (3.80-5.40); WBC 9.1 k/uL (3.8-10.6)
[2019-12-23 07:59] LABS: Albumin 4.3 g/dL (3.5-5.0); Calcium 9.7 mg/dL (8.4-10.2); Potassium 4.4 mmol/L (3.5-5.1); Total Bilirubin 0.7 mg/dL (0.2-1.3); Total Protein 6.9 g/dL (6.3-8.2)
--- NOTE | 2019-12-23 08:21 | CT ---
EXAMINATION TYPE: CT brain rosaliaine wo con DATE OF EXAM: 12/23/2019 COMPARISON: CT brain August 04, 2018 HISTORY: Fall injury with headache and neck pain. CT DLP: 1409 mGycm. Automated Exposure Control for Dose Reduction was Utilized. TECHNIQUE: CT scan of the head and cervical spine are performed without contrast. FINDINGS: There is no acute intracranial hemorrhage or midline shift identified. Diffuse ventricula r and sulcal prominence. Low attenuation in the deep and periventricular white matter . 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 The calvarium is intact. Small mucous retention cyst or polyp in the inferior left maxill courtney sinus otherwise the globes are intact and the visualized sinuses are clear. Osseous structures are demineralized. Cervical spine is visualized in its entirety from C1 through up per thoracic levels and demonstrates stable and straightened alignment without evidence of acute frac ture or dislocation. Prevertebral soft tissue appears within normal limits. The C1-C2 articulation is within normal limits on the coronal images. Vertebral body heights are maintained. Moderate to se kirt multilevel disc space narrowing with mild to moderate multilevel spurring. Posterior spur disc c omplexes efface the anterior thecal sac at C3-C4 and to a greater degree at C5-C6 levels. Axial image s show multilevel uncovertebral facet degenerative changes contributing to multilevel bilateral neura l foraminal narrowing. Lung apices show focal scarring in the posterior aspect of the right upper lob e. There is moderate calcified plaque bilateral carotid bulb level. IMPRESSION: 1. There is no acute fracture or dislocation evident in the cervical spine. 2. No acute intracranial hemorrhage or midline shift is seen.
[2019-12-23 08:36] LABS: Appearance,Urine Cloudy (Clear); Bacteria,Urine Occasional /hpf; Bilirubin,Urine Negative (Negative); Blood,Urine Negative (Negative); Color,Urine Yellow; Glucose,Urine (UA) Negative (Negative); Ketones,Urine Trace (Negative); Leukocyte Esterase,Urine Moderate (Negative); Mucus,Urine Occasional /hpf; Nitrite,Urine Negative (Negative); PH, Urine 6.5 (5.0-8.0); Protein,Urine Trace (Negative); Squamous Epithelial Cell,Urine <1 /hpf (0-4); Urobilinogen,Urine <2.0 mg/dL (<2.0); WBC,Urine 42 /hpf (0-5)
[2019-12-23] MEDS ORDERED: ACETAMINOPHEN TAB 325 MG TAB PO PRN (08:43)
[2019-12-23] MEDS ORDERED: ONDANSETRON 4 MG/2 ML VIAL IVP PRN (08:43)
[2019-12-23] MEDS ORDERED: NALOXONE 0.4 MG/ML 1 ML VIAL IV PRN (08:43)
--- NOTE | 2019-12-23 08:44 | XR ---
EXAMINATION TYPE: XR pelvis AP view DATE OF EXAM: 12/23/2019 CLINICAL HISTORY: Pain after fall injury. TECHNIQUE: A single AP view of the pelvis is obtained. COMPARISON: None. FINDINGS: Osseous structures are demineralized. There is no acute fracture/dislocation evident in th e pelvis. Old healed fractures involving the right superior and inferior pelvic rami. Symmetric mild -to-moderate axial joint space loss in both hips. Some narrowing and spurring at the pubic symphysis. Sacroiliac joints show some narrowing and sclerosis bilaterally. Deformity right iliac crest likely from bone harvesting procedure. Incidental moderate to severe spurring and disc space narrowing in th e lower lumbar spine. Overlying vascular calcifications are present. IMPRESSION: There is no acute fracture or dislocation in the pelvis.
--- NOTE | 2019-12-23 08:45 | XR ---
EXAMINATION TYPE: XR chest 1V DATE OF EXAM: 12/23/2019 COMPARISON: Chest x-ray August 04, 2018. CTA chest August 21, 2015. HISTORY: Chest pain after fall injury. TECHNIQUE: Single frontal view of the chest is obtained. FINDINGS: There is chronic parenchymal change bilaterally without suspicious new focal air space opa [place], pleural effusion, or pneumothorax seen. The cardiac silhouette size is stable and upper limits of normal with atherosclerotic and ectatic thoracic aorta. Retrocardiac opacity consistent with fixe d moderate to large size hiatal hernia redemonstrated . The osseous structures remain demineralized. IMPRESSION: Chronic changes without new acute process.
[2019-12-23] MEDS: cefTRIAXone IN SWFI 1,000 MG/10 ML SYRINGE IVP STA ×2 (08:57→09:09)
[2019-12-23] MEDS: SODIUM CHLORIDE 0.9% 1,000 ML IV SCH ×2 (08:58→23:49)
--- NOTE | 2019-12-23 09:38 | XR ---
EXAMINATION TYPE: XR wrist complete LT DATE OF EXAM: 12/23/2019 COMPARISON: NONE HISTORY: Pain TECHNIQUE: Four views submitted. FINDINGS: The osseous structures are intact. Diffuse osteopenia with severe narrowing the first carpal metacarp al joint. Small calcification or ossification adjacent to the base of the fifth metacarpal. Narrowing of the radiocarpal joint seen. Linear lucency involving the base of the second metacarpal.. IMPRESSION: 1. Linear lucency in the frontal view involving the base of the second metacarpal. Questionable linea r hairline fracture correlate with point tenderness.
[2019-12-23] MEDS ORDERED: ONDANSETRON 4 MG TAB PO PRN (12:13)
[2019-12-23] MEDS ORDERED: polyethylene glycoL 3350 17 GM POWD.PACK PO PRN (12:13)
[2019-12-23] MEDS ORDERED: QUEtiapine 25 MG TAB PO PRN (12:13)
[2019-12-23] MEDS ORDERED: MINERAL OIL BOTH EARS SCH (12:15)
[2019-12-23] MEDS ORDERED: KETOROLAC 30 MG/ML 1 ML VIAL IVP PRN (12:44)
[2019-12-23] MEDS: ESCITALOPRAM 10 MG TAB PO SCH (13:19)
[2019-12-23] MEDS: CARBIDOPA-LEVODOPA 25-100 MG 1 EACH TAB PO SCH (13:19)
[2019-12-23 13:37] LABS: INR 1.8 (<1.2); Prothrombin Time 17.2 sec (9.0-12.0)
--- NOTE | 2019-12-23 15:16 | P.HPIM ---
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 Patient had a trauma workup with head and cervical spine CT pelvic see x-ray and a wrist x-ray patient does have swelling in the right hand. Patient's x-ray of the right wrist did show some lucency at the base of the second metacarpal questionable for hairline fracture. 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 Patient denied any Leg symptoms doesn't have any leukocytosis doesn't have any fever although urine is bit abnormal with moderate leukocyte esterase. WBC and occasional bacteria is probably asymptomatic bacteriuria. Patient was given a dose of antibiotic antibiotics will be discontinued. Patient or family members, daughter is at bedside denied any increased confusion. Review of Systems REVIEW OF SYSTEMS: All review of systems is negative but patient is a poor historian because of her advanced dementia. The rest of the 14-point review of systems is negative. Past Medical History Past Medical History: GERD/Reflux, Hyperlipidemia, Hypertension, Rheumatoid Arthritis (RA), Thyroid Disorder Additional Past Medical History / Comment(s): "Has ascending aortic aneurysm", dementia History of Any Multi-Drug Resistant Organisms: None Reported Past Surgical History: Appendectomy, Back Surgery, Orthopedic Surgery, Tonsillectomy Additional Past Surgical History / Comment(s): RIGHT LEG SURGERY, EGD Past Anesthesia/Blood Transfusion Reactions: No Reported Reaction Past Psychological History: No Psychological Hx Reported Smoking Status: Never smoker Past Alcohol Use History: None Reported Past Drug Use History: None Reported - Past Family History Father Family Medical History: Myocardial Infarction ([place]) Mother Family Medical History: No Reported History Medications and Allergies Home Medications Medication Instructions Recorded Confirmed Type Levothyroxine Sodium [Synthroid] 75 mcg PO DAILY@0600 04/04/14 12/23/19 History Ondansetron [Zofran] 4 mg PO Q8H PRN 04/04/14 12/23/19 History lisinopriL [Prinivil] 20 mg PO DAILY@0600 04/04/14 12/23/19 History Carbidopa-Levodopa 25-100 mg 2 tab PO BID@0900,1300 08/04/18 12/23/19 History [Sinemet 25-100 mg] Diltiazem Cd [Cardizem CD] 180 mg PO HS 08/04/18 12/23/19 History Escitalopram [Lexapro] 10 mg PO AC-LUNCH 08/04/18 12/23/19 History Membrasin 2 cap PO DAILY 08/04/18 12/23/19 History Mineral Oil 2 drops BOTH EARS MOFR 08/04/18 12/23/19 History Polyethylene Glycol 3350 [Miralax] 8.5 gm PO Q72H 08/04/18 12/23/19 History Warfarin [Coumadin] 5 mg PO SUMOWETHSA 08/04/18 12/23/19 History guaiFENesin [Mucinex] 600 mg PO HS 08/04/18 12/23/19 History ALPRAZolam [Xanax] 0.25 mg PO BID PRN 12/23/19 12/23/19 History Domperidone 10mg 10 mg PO AC-TID 12/23/19 12/23/19 History Midnite Sleep Aid 1 tab PO AC-SUPPER 12/23/19 12/23/19 History Potassium Chloride ER [K-Dur 10] 10 meq PO BID 12/23/19 12/23/19 History QUEtiapine [SEROquel] 25 mg PO HS 12/23/19 12/23/19 History Warfarin [Coumadin] 2.5 mg PO TUFR 12/23/19 12/23/19 History Allergies Allergy/AdvReac Type Severity Reaction Status Date / Time amlodipine [From Norvasc] Allergy Unknown Verified 12/23/19 08:53 cefdinir [From Omnicef] Allergy Nausea & Verified 12/23/19 08:53 Vomiting iodine Allergy Rapid Verified 12/23/19 08:53 Heart Rate levofloxacin [From Levaquin] Allergy Nausea & Verified 12/23/19 08:53 Vomiting & Diarrhea Penicillins Allergy Rash/Hives Verified 12/23/19 08:53 Sulfa (Sulfonamide Allergy HIIVES Verified 12/23/19 08:53 Antibiotics) sulfamethoxazole Allergy Unknown Verified 12/23/19 08:53 [From Bactrim] trimethoprim [From Bactrim] Allergy Unknown Verified 12/23/19 08:53 metoclopramide HCl AdvReac FACAIL Verified 12/23/19 08:53 [From Reglan] Physical Exam Vitals: Vital Signs Temp Pulse Pulse Resp BP BP Pulse Ox 12/23/19 12:19 98.8 F 91 17 159/88 96 12/23/19 09:43 98.8 F 88 18 183/97 96 12/23/19 09:19 97.8 F 78 16 158/71 96 12/23/19 06:57 98.1 F 88 16 160/87 95 Intake and Output 12/23/19 12/23/19 12/23/19 06:59 14:59 22:59 Other: Voiding Method Incontinent # Voids 2 Weight 63.503 kg 63.503 kg PHYSICAL EXAMINATION: GENERAL: The patient is alert and oriented x2, not in any acute distress. Thin built elderly female HEENT: Pupils are round and equally reacting to light. EOMI. No scleral icterus. No conjunctival pallor. Normocephalic, atraumatic. No pharyngeal erythema. No thyromegaly. CARDIOVASCULAR: S1 and S2 present. No murmurs, rubs, or gallops. PULMONARY: Chest is clear to auscultation, no wheezing or crackles. ABDOMEN: Soft, nontender, nondistended, normoactive bowel sounds. No palpable organomegaly. MUSCULOSKELETAL: Patient has swelling in the right hand. EXTREMITIES: No cyanosis, clubbing, or pedal edema. NEUROLOGICAL: Gross neurological examination did not reveal any focal deficits. SKIN: No rashes. Results CBC & Chem 7: 12/23/19 07:32 12/23/19 07:32 Labs: Abnormal Lab Results - Last 24 Hours (Table) 12/23/19 12/23/19 12/23/19 Range/Units 07:30 07:32 07:32 Lymphocytes # 0.8 L (1.0-4.8) k/uL PT 17.2 H (9.0-12.0) sec INR 1.8 H (<1.2) BUN 19 H (7-17) mg/dL Glucose 120 H (74-99) mg/dL Creatine Kinase 351 H (30-135) U/L Urine Appearance (Clear) Urine Protein (Negative) Urine Ketones (Negative) Ur Leukocyte Esterase (Negative) Urine WBC (0-5) /hpf Urine Bacteria (None) /hpf Urine Mucus (None) /hpf 12/23/19 Range/Units 08:15 Lymphocytes # (1.0-4.8) k/uL PT (9.0-12.0) sec INR (<1.2) BUN (7-17) mg/dL Glucose (74-99) mg/dL Creatine Kinase (30-135) U/L Urine Appearance Cloudy H (Clear) Urine Protein Trace H (Negative) Urine Ketones Trace H (Negative) Ur Leukocyte Esterase Moderate H (Negative) Urine WBC 42 H (0-5) /hpf Urine Bacteria Occasional H (None) /hpf Urine Mucus Occasional H (None) /hpf Thrombosis Risk Factor Assmnt - Choose All That Apply Each Risk Factor Represents 3 Points: Age 75 years or older Thrombosis Risk Factor Assessment Total Risk Factor Score: 3 Thrombosis Risk Factor Assessment Level: Moderate Risk Assessment and Plan Plan: -Fall secondary to generalized weakness and for concerns PT and OT consultation will be obtained patient usually uses a walker. Patient will need occupational therapy help as patient is having pain and swelling in the right hand because of which patient will have hard time holding the walker. -Inhaler and fracture of the metatarsal joint in the right hand: We will order a brace for that and orthopedic surgery will be consulted. Pain management with the Tylenol and Toradol along with GI prophylaxis. -Asymptomatic bacteriuria will not require any antibiotics and medics were discontinued -Parkinsonian is him with Lewy body dementia continue with carbidopa levodopa. Patient is on Seroquel on as-needed basis for agitation and hallucinations -Hypertension next and-hyperlipidemia -Hypothyroidism -Gastroesophageal reflux disease History of DVT in the past for which patient is including although subtherapeutic on Coumadin although this is barely being used as due to prophylaxis because of which I believe INR of 1.8 is okay and patient resumed on same home dose
[2019-12-23] MEDS ORDERED: WARFARIN 5 MG TAB PO ONE (18:00)
[2019-12-23] MEDS: MELATONIN 1 MG TAB PO SCH (18:21)
[2019-12-23] MEDS: WARFARIN 2.5 MG TAB PO SCH ×2 (18:21→18:26)
[2019-12-23] MEDS: DOMPERIDONE 10 MG PO SCH (18:22)
[2019-12-23 20:07] VITALS: RESP 16
[2019-12-23] MEDS ORDERED: DILTIAZEM CD 180 MG CAP.ER.24H PO SCH (21:00)
[2019-12-23] MEDS ORDERED: guaiFENesin 600 MG TABLET.ER PO SCH (21:00)
[2019-12-24] MEDS ORDERED: LEVOTHYROXINE 75 MCG TAB PO SCH (06:00)
[2019-12-24] MEDS ORDERED: lisinopriL 20 MG TAB PO SCH (06:00)
[2019-12-24 08:12] LABS: INR 2.2 (<1.2); Prothrombin Time 21.3 sec (9.0-12.0)
[2019-12-24] MEDS: DOMPERIDONE 10 MG PO SCH ×3 (08:33→17:30)
[2019-12-24] MEDS: CARBIDOPA-LEVODOPA 25-100 MG 1 EACH TAB PO SCH ×2 (08:33→13:53)
[2019-12-24] MEDS ORDERED: FAMOTIDINE 20 MG TAB PO SCH (09:00)
[2019-12-24] MEDS ORDERED: [UNRECOGNIZED DRUG - OTHER] PO SCH (09:00)
--- NOTE | 2019-12-24 11:41 | P.CNOR ---
History of Present Illness - HPI Consult date: 12/24/19 History of present illness: This is an 84 year-old female with a history of dementia and Parkinson's who is admitted after a fall. Patient resides at [facility]. Orthopedics is consulted due to right wrist pain. X-rays done in the emergency room reveal possible fracture of the 2nd metacarpal base. Patient is on Coumadin for history of multiple DVT's. Patient is a poor historian, but is able to answer yes or no questions. No family present in the room. Patient denies any pain in the right wrist or hand today. Patient denies any fever/chills, numbness, weakness, tingling, abdominal pain, shortness of breath or chest pain. Review of Systems See HPI. Past Medical History Past Medical History: GERD/Reflux, Hyperlipidemia, Hypertension, Rheumatoid Arthritis (RA), Thyroid Disorder Additional Past Medical History / Comment(s): "Has ascending aortic aneurysm", dementia History of Any Multi-Drug Resistant Organisms: None Reported Past Surgical History: Appendectomy, Back Surgery, Orthopedic Surgery, Tonsillectomy Additional Past Surgical History / Comment(s): RIGHT LEG SURGERY, EGD Past Anesthesia/Blood Transfusion Reactions: No Reported Reaction Past Psychological History: No Psychological Hx Reported Smoking Status: Never smoker Past Alcohol Use History: None Reported Past Drug Use History: None Reported - Past Family History Father Family Medical History: Myocardial Infarction ([place]) Mother Family Medical History: No Reported History Medications and Allergies Home Medications Medication Instructions Recorded Confirmed Type Levothyroxine Sodium [Synthroid] 75 mcg PO DAILY@0600 04/04/14 12/23/19 History Ondansetron [Zofran] 4 mg PO Q8H PRN 04/04/14 12/23/19 History lisinopriL [Prinivil] 20 mg PO DAILY@0600 04/04/14 12/23/19 History Carbidopa-Levodopa 25-100 mg 2 tab PO BID@0900,1300 08/04/18 12/23/19 History [Sinemet 25-100 mg] Diltiazem Cd [Cardizem CD] 180 mg PO HS 08/04/18 12/23/19 History Escitalopram [Lexapro] 10 mg PO AC-LUNCH 08/04/18 12/23/19 History Membrasin 2 cap PO DAILY 08/04/18 12/23/19 History Mineral Oil 2 drops BOTH EARS MOFR 08/04/18 12/23/19 History Polyethylene Glycol 3350 [Miralax] 8.5 gm PO Q72H 08/04/18 12/23/19 History Warfarin [Coumadin] 5 mg PO SUMOWETHSA 08/04/18 12/23/19 History guaiFENesin [Mucinex] 600 mg PO HS 08/04/18 12/23/19 History ALPRAZolam [Xanax] 0.25 mg PO BID PRN 12/23/19 12/23/19 History Domperidone 10mg 10 mg PO AC-TID 12/23/19 12/23/19 History Midnite Sleep Aid 1 tab PO AC-SUPPER 12/23/19 12/23/19 History Potassium Chloride ER [K-Dur 10] 10 meq PO BID 12/23/19 12/23/19 History QUEtiapine [SEROquel] 25 mg PO HS 12/23/19 12/23/19 History Warfarin [Coumadin] 2.5 mg PO TUFR 12/23/19 12/23/19 History Allergies Allergy/AdvReac Type Severity Reaction Status Date / Time amlodipine [From Norvasc] Allergy Unknown Verified 12/23/19 08:53 cefdinir [From Omnicef] Allergy Nausea & Verified 12/23/19 08:53 Vomiting iodine Allergy Rapid Verified 12/23/19 08:53 Heart Rate levofloxacin [From Levaquin] Allergy Nausea & Verified 12/23/19 08:53 Vomiting & Diarrhea Penicillins Allergy Rash/Hives Verified 12/23/19 08:53 Sulfa (Sulfonamide Allergy HIIVES Verified 12/23/19 08:53 Antibiotics) sulfamethoxazole Allergy Unknown Verified 12/23/19 08:53 [From Bactrim] trimethoprim [From Bactrim] Allergy Unknown Verified 12/23/19 08:53 metoclopramide HCl AdvReac FACAIL Verified 12/23/19 08:53 [From Reglan] Physical Examination On exam patient is resting comfortably in bed in no acute distress. Patient is pleasantly confused. Tima wrap is removed for exam. There is no swelling, erythema or ecchymosis. There is no tenderness to palpation over the right wrist or hand. Patient has full range of motion of the right wrist and hand without pain or difficulty. Sensation is intact. The right upper extremity is warm and well perfused. Neurovascular status circulatory status are intact. Results X-rays of the right wrist dated 12/23/2019 show a lucency at the base of the 2nd metacarpal. - Labs Labs: Abnormal Lab Results - Last 24 Hours (Table) 12/23/19 12/24/19 Range/Units 07:30 07:06 PT 17.2 H 21.3 H (9.0-12.0) sec INR 1.8 H 2.2 H (<1.2) Microbiology - Last 24 Hours (Table) 12/23/19 08:15 Urine Culture - Preliminary Urine,Voided H & H 12/23/19 Range/Units 07:32 Hgb 14.3 (11.4-16.0) gm/dL Hct 44.8 (34.0-46.0) % Coagulation 12/23/19 12/24/19 Range/Units 07:30 07:06 INR 1.8 H 2.2 H (<1.2) Result Diagrams: 12/23/19 07:32 12/23/19 07:32 Assessment and Plan (1) Right wrist sprain Current Visit: Yes Status: Acute Code(s): S63.501A - UNSPECIFIED SPRAIN OF RIGHT WRIST, INITIAL ENCOUNTER SNOMED Code(s): 49815056 (2) Confusion Current Visit: Yes Status: Acute Code(s): R41.0 - DISORIENTATION, UNSPECIFIED SNOMED Code(s): 820959823 (3) Fall Current Visit: Yes Status: Acute Code(s): W19.XXXA - UNSPECIFIED FALL, INITIAL ENCOUNTER SNOMED Code(s): 0686457 Plan: #1. Imaging is reviewed. Patient is nontender on exam. Will obtain wrist brace to be worn as needed for pain. Recommend rest, ice and elevation of the right upper extremity as needed. #2. Continue pain control. #3. No surgical intervention planned. Patient may follow up as an outpatient.
[2019-12-24 12:11] VITALS: BP 162/89; PULSE 76; TEMP 97.6
[2019-12-24] MEDS: ESCITALOPRAM 10 MG TAB PO SCH (13:54)
--- NOTE | 2019-12-24 16:54 | P.DS ---
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 Patient had a trauma workup with head and cervical spine CT pelvic see x-ray and a wrist x-ray patient does have swelling in the right hand. Patient's x-ray of the right wrist did show some lucency at the base of the second metacarpal questionable for hairline fracture. 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 Patient denied any Leg symptoms doesn't have any leukocytosis doesn't have any fever although urine is bit abnormal with moderate leukocyte esterase. WBC and occasional bacteria is probably asymptomatic bacteriuria. Patient was given a dose of antibiotic antibiotics will be discontinued. Patient or family members, daughter is at bedside denied any increased confusion. 12/24/2019 Patient had a brace for the rest and patient is clinically doing well patient INR is therapeutic today patient the urine cultures are positive for gram- negative bacilli but patient still has a symptomatically bacteriuria not not requiring antibiotics. Since I'm discharging the patient is going into her 1 more dose of Rocephin before discharge. Will not require any by mouth antibiotics upon discharge. PHYSICAL EXAMINATION: GENERAL: The patient is alert and oriented x2, confused which is her baseline, not in any acute distress. Thin built elderly female HEENT: Pupils are round and equally reacting to light. EOMI. No scleral icterus. No conjunctival pallor. Normocephalic, atraumatic. No pharyngeal erythema. No thyromegaly. CARDIOVASCULAR: S1 and S2 present. No murmurs, rubs, or gallops. PULMONARY: Chest is clear to auscultation, no wheezing or crackles. ABDOMEN: Soft, nontender, nondistended, normoactive bowel sounds. No palpable organomegaly. MUSCULOSKELETAL: Patient has swelling in the right hand. EXTREMITIES: No cyanosis, clubbing, or pedal edema. NEUROLOGICAL: Gross neurological examination did not reveal any focal deficits. SKIN: No rashes. Assessment and Plan Plan: -Fall secondary to generalized weakness and Parkinson's patient already has a walker and patient lives in a dementia facility where she is doing well and patient will be discharged to the same facility -Hairline fracture of the metatarsal joint in the right hand: Patient is being discharged with Tylenol and a brace -Asymptomatic bacteriuria will not require any antibiotics, patient received 2 doses of Rocephin here -Parkinsonian is him with Lewy body dementia continue with carbidopa levodopa. Patient is on Seroquel on as-needed basis for agitation and hallucinations. Discontinue Xanax -Hypertension -hyperlipidemia -Hypothyroidism -Gastroesophageal reflux disease History of DVT in the past for which patient is on Coumadin which will be continued. Patient Condition at Discharge: Fair Plan - Discharge Summary Discharge Rx Participant: No New Discharge Prescriptions: New Acetaminophen Tab [Tylenol] 650 mg PO Q6HR PRN tab PRN Reason: Mild Pain Or Fever > 100.5 Continue Ondansetron [Zofran] 4 mg PO Q8H PRN PRN Reason: Nausea lisinopriL [Prinivil] 20 mg PO DAILY@0600 Levothyroxine Sodium [Synthroid] 75 mcg PO DAILY@0600 Membrasin 2 cap PO DAILY Carbidopa-Levodopa 25-100 mg [Sinemet 25-100 mg] 2 tab PO BID@0900,1300 Diltiazem Cd [Cardizem CD] 180 mg PO HS Escitalopram [Lexapro] 10 mg PO AC-LUNCH guaiFENesin [Mucinex] 600 mg PO HS Mineral Oil 2 drops BOTH EARS MOFR Polyethylene Glycol 3350 [Miralax] 8.5 gm PO Q72H Warfarin [Coumadin] 5 mg PO SUMOWETHSA Domperidone 10mg 10 mg PO AC-TID Midnite Sleep Aid 1 tab PO AC-SUPPER Potassium Chloride ER [K-Dur 10] 10 meq PO BID QUEtiapine [SEROquel] 25 mg PO HS Warfarin [Coumadin] 2.5 mg PO TUFR Discontinued ALPRAZolam [Xanax] 0.25 mg PO BID PRN PRN Reason: Anxiety Discharge Medication List Levothyroxine Sodium [Synthroid] 75 mcg PO DAILY@0600 04/04/14 [History] Ondansetron [Zofran] 4 mg PO Q8H PRN 04/04/14 [History] lisinopriL [Prinivil] 20 mg PO DAILY@0600 04/04/14 [History] Carbidopa-Levodopa 25-100 mg [Sinemet 25-100 mg] 2 tab PO BID@0900,1300 08/04/18 [History] Diltiazem Cd [Cardizem CD] 180 mg PO HS 08/04/18 [History] Escitalopram [Lexapro] 10 mg PO AC-LUNCH 08/04/18 [History] Membrasin 2 cap PO DAILY 08/04/18 [History] Mineral Oil 2 drops BOTH EARS MOFR 08/04/18 [History] Polyethylene Glycol 3350 [Miralax] 8.5 gm PO Q72H 08/04/18 [History] Warfarin [Coumadin] 5 mg PO SUMOWETHSA 08/04/18 [History] guaiFENesin [Mucinex] 600 mg PO HS 08/04/18 [History] Domperidone 10mg 10 mg PO AC-TID 12/23/19 [History] Midnite Sleep Aid 1 tab PO AC-SUPPER 12/23/19 [History] Potassium Chloride ER [K-Dur 10] 10 meq PO BID 12/23/19 [History] QUEtiapine [SEROquel] 25 mg PO HS 12/23/19 [History] Warfarin [Coumadin] 2.5 mg PO TUFR 12/23/19 [History] Acetaminophen Tab [Tylenol] 650 mg PO Q6HR PRN tab 12/24/19 [Rx] Follow up Appointment(s)/Referral(s): Scarlet Maldonado MD [Primary Care Provider] - 3 Days Romario Duong DO [Doctor of Osteopathic Medicine] - 10 Days Activity/Diet/Wound Care/Special Instructions: Maintain wrist brace to right upper extremity as needed for pain. Please follow up with [facility] and call with any questions or concerns. [phone]. Discharge Disposition: HOME SELF-CARE
[2019-12-24] MEDS ORDERED: WARFARIN 5 MG TAB PO SCH (18:00)
[2019-12-24] MEDS: MELATONIN 1 MG TAB PO SCH (18:03)
== END 2019-12-24 18:24 | disposition home or self-care (01) ==
LOC: EC 06:56 → 5NMEDONC 08:43
PROVIDERS: ADMIT Hospitalist; ATTEND Hospitalist
DX: S62.310A Displaced fracture of base of second metacarpal bone, right hand, initial encounter for closed fracture (principal); W19.XXXA Unspecified fall, initial encounter; R53.1 Weakness; R82.71 Bacteriuria; G20 Parkinson's disease; G31.83 Neurocognitive disorder with Lewy bodies; Z86.718 Personal history of other venous thrombosis and embolism; E03.9 Hypothyroidism, unspecified; E78.5 Hyperlipidemia, unspecified; K21.9 Gastro-esophageal reflux disease without esophagitis; I10 Essential (primary) hypertension; N39.0 Urinary tract infection, site not specified; M06.9 Rheumatoid arthritis, unspecified; I71.4 Abdominal aortic aneurysm, without rupture; Z98.890 Other specified postprocedural states; R41.82 Altered mental status, unspecified; Z82.49 Family history of ischemic heart disease and other diseases of the circulatory system; Z79.01 Long term (current) use of anticoagulants; Z79.890 Hormone replacement therapy; Z79.899 Other long term (current) drug therapy; Z88.1 Allergy status to other antibiotic agents; Z88.0 Allergy status to penicillin; Z88.2 Allergy status to sulfonamides; Z88.8 Allergy status to other drugs, medicaments and biological substances; R41.0 Disorientation, unspecified
CPT/HCPCS: 96365; 96376; 96361; 99285; 36415; 97162; 97166; 80053; 82550; 83605; 85025; 85610 ×2; 81001; 87040; 87086; 87077; 87186; 72170; 73110; 71045; 72125; 70450; G0378 ×2; J0696 ×2

== ENCOUNTER 2020-03-09 12:52 | Inpatient (IN) | payer MEDICARE, OTHER ==
[2020-03-09] MEDS ORDERED: MORPHINE SULFATE 4 MG/ML SYRINGE IVP STA (13:26)
[2020-03-09] MEDS ORDERED: ONDANSETRON 4 MG/2 ML VIAL IVP STA (13:26)
--- NOTE | 2020-03-09 14:09 | ED ---
General Adult HPI - General Source: EMS, RN notes reviewed Mode of arrival: EMS <Fran Pham - Last Filed: 03/09/20 16:04> <Aparna Lazaro - Last Filed: 03/10/20 16:55> - General Chief complaint: Fall Stated complaint: Fall, HIP PAIN Time Seen by Provider: 03/09/20 13:21 - History of Present Illness Initial comments: 84-year-old female with a past medical history of GERD, hyperlipidemia, hypertension presents to the emergency room for a chief complaint of fall. Patient is a history of dementia and lives at an assisted living facility. Patient fell from standing while walking in front of the sofa. Patient has a history of falls given her history of Parkinson's. No loss of consciousness. No syncope or lightheadedness preceding this fall. Patient is complaining of hip pain. 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 Patient has no other complaints at this time including shortness of breath, chest pain, abdominal pain, nausea or vomiting, headache, or visual changes. (Fran Pham) - Related Data Home Medications Medication Instructions Recorded Confirmed Levothyroxine Sodium [Synthroid] 75 mcg PO DAILY@0600 04/04/14 03/09/20 Ondansetron [Zofran] 4 mg PO Q8H PRN 04/04/14 03/09/20 lisinopriL [Prinivil] 20 mg PO DAILY@0600 04/04/14 03/09/20 Carbidopa-Levodopa 25-100 mg 2 tab PO BID@0900,1300 08/04/18 03/09/20 [Sinemet 25-100 mg] Diltiazem Cd [Cardizem CD] 180 mg PO HS 08/04/18 03/09/20 Escitalopram [Lexapro] 10 mg PO AC-LUNCH 08/04/18 03/09/20 Membrasin 2 cap PO DAILY 08/04/18 03/09/20 Mineral Oil 2 drops BOTH EARS MOFR 08/04/18 03/09/20 Polyethylene Glycol 3350 [Miralax] 8.5 gm PO Q72H 08/04/18 03/09/20 Warfarin [Coumadin] 5 mg PO SUMOWETHSA 08/04/18 03/09/20 guaiFENesin [Mucinex] 600 mg PO HS 08/04/18 03/09/20 Domperidone 10mg 10 mg PO AC-TID 12/23/19 03/09/20 Midnite Sleep Aid 1 tab PO AC-SUPPER 12/23/19 03/09/20 Potassium Chloride ER [K-Dur 10] 10 meq PO BID 12/23/19 03/09/20 QUEtiapine [SEROquel] 25 mg PO HS 12/23/19 03/09/20 Warfarin [Coumadin] 2.5 mg PO TUFR 12/23/19 03/09/20 ALPRAZolam [Xanax] 0.25 mg PO Q8H PRN 03/09/20 03/09/20 Acetaminophen [Tylenol] 500 mg PO Q6H PRN 03/09/20 03/09/20 Clobetasol Propionate [Temovate 1 applic VAGINAL TUTH 03/09/20 03/09/20 0.05% Cream] Ensure 1 can PO DAILY 03/09/20 03/09/20 Estradiol [Vagifem] 10 mcg VAGINAL MOWEFR 03/09/20 03/09/20 Hydrocortisone Acetate [Anusol-Hc] 25 mg RECTAL HS 03/09/20 03/09/20 Nystatin 100,000 Unit/gm Powd 1 applic TOPICAL BID 03/09/20 03/09/20 [Mycostatin Powder] Allergies Allergy/AdvReac Type Severity Reaction Status Date / Time amlodipine [From Norvasc] Allergy Unknown Verified 03/09/20 16:17 cefdinir [From Omnicef] Allergy Nausea & Verified 03/09/20 16:17 Vomiting iodine Allergy Rapid Verified 03/09/20 16:17 Heart Rate levofloxacin [From Levaquin] Allergy Nausea & Verified 03/09/20 16:17 Vomiting & Diarrhea Penicillins Allergy Rash/Hives Verified 03/09/20 16:17 Sulfa (Sulfonamide Allergy HIIVES Verified 03/09/20 16:17 Antibiotics) sulfamethoxazole Allergy Unknown Verified 03/09/20 16:17 [From Bactrim] trimethoprim [From Bactrim] Allergy Unknown Verified 03/09/20 16:17 metoclopramide HCl AdvReac FACAIL Verified 03/09/20 16:17 [From Reglan] Review of Systems ROS Other: All systems not noted in ROS Statement are negative. <Vero,Fran P - Last Filed: 03/09/20 16:04> ROS Other: All systems not noted in ROS Statement are negative. <Aparna Lazaro - Last Filed: 03/10/20 16:55> ROS Statement: Those systems with pertinent positive or pertinent negative responses have been documented in the HPI. Past Medical History Past Medical History: GERD/Reflux, Hyperlipidemia, Hypertension, Rheumatoid Arthritis (RA), Thyroid Disorder Additional Past Medical History / Comment(s): "Has ascending aortic aneurysm", dementia History of Any Multi-Drug Resistant Organisms: None Reported Past Surgical History: Appendectomy, Back Surgery, Orthopedic Surgery, Tonsillectomy Additional Past Surgical History / Comment(s): RIGHT LEG SURGERY, EGD Past Anesthesia/Blood Transfusion Reactions: No Reported Reaction Past Psychological History: No Psychological Hx Reported Smoking Status: Never smoker Past Alcohol Use History: None Reported Past Drug Use History: None Reported - Past Family History Father Family Medical History: Myocardial Infarction (OR) Mother Family Medical History: No Reported History <Fran Pham P - Last Filed: 03/09/20 16:04> General Exam General appearance: alert, in no apparent distress Head exam: Present: atraumatic, normocephalic, normal inspection Eye exam: Present: normal appearance, PERRL, EOMI. Absent: scleral icterus, conjunctival injection, periorbital swelling ENT exam: Present: normal exam, mucous membranes moist Neck exam: Present: other (c-collar in place). Absent: tenderness, lymphadenopathy Respiratory exam: Present: normal lung sounds bilaterally. Absent: respiratory distress, wheezes, rales, rhonchi, stridor Cardiovascular Exam: Present: regular rate, normal rhythm, normal heart sounds. Absent: systolic murmur, diastolic murmur, rubs, gallop, clicks GI/Abdominal exam: Present: soft, normal bowel sounds. Absent: distended, tenderness, guarding, rebound, rigid Extremities exam: Present: normal capillary refill (Capillary refill less than 2 seconds, DP pulse 2+ in the right lower extremity.), other (Right lower extremity is elongated and externally rotated.). Absent: full ROM (Patient u nable to move the right hip secondary to pain.) Neurological exam: Present: alert, oriented X3 <Fran Pham P - Last Filed: 03/09/20 16:04> Course Vital Signs 03/09/20 03/09/20 12:58 16:20 Temperature 97.7 F Pulse Rate 92 93 Respiratory 18 18 Rate Blood Pressure 202/105 160/92 O2 Sat by Pulse 97 92 L Oximetry Medical Decision Making - Lab Data Result diagrams: 03/09/20 14:38 03/09/20 14:38 <Fran Pham - Last Filed: 03/09/20 16:04> - Lab Data Result diagrams: 03/10/20 06:33 03/10/20 06:33 <Aparna Lazaro - Last Filed: 03/10/20 16:55> - Medical Decision Making Vitals are stable. She is hypertensive which is likely secondary to pain. This did improve after pain medication given. Physical exam does reveal an elongated and externally rotated right leg. CBC CMP unremarkable. INR is 1.7. Stable 2.5 cm meningioma within the left anterior cranial fossa with mild central cerebellar atrophy and changes of chronic small vessel ischemic disease. No acute intracranial abnormality seen. Moderate to advanced multilevel spondylitic changes in the cervical spine. No acute fracture or malalignment. CT cervical spine shows moderate to advanced changes however no acute fracture or malalignment. X-ray of the hip and pelvis shows a comminuted and angulated intertrochanteric fracture of the proximal right femur. I did speak with Hortencia Medrano from Dr. Mota's office, does except this admission. Medicine will be consulted. He recommends that we hold Coumadin and start patient on a regular diet given they will probably not do surgery until at least Thursday (Fran Pham) I was available for consultation in the emergency department. The history and physical exam were done by the midlevel provider. I was consulted for this patients care. I reviewed the case with the midlevel provider and based on their presentation of the patient, I agree with the assessment, medical decision making and plan of care as documented. Chart was dictated using [employer]le [employer] dictation software. Attempts were made to correct any dictation errors however some typographical errors may persist. Patient was seen during a national state of emergency due to the Covid-19 pandemic. (Aparna Lazaro) - Lab Data Lab Results 03/09/20 03/09/20 03/09/20 Range/Units 14:38 14:38 14:38 WBC 9.0 (3.8-10.6) k/uL RBC 4.95 (3.80-5.40) m/uL Hgb 14.4 (11.4-16.0) gm/dL Hct 44.9 (34.0-46.0) % MCV 90.7 (80.0-100.0) fL MCH 29.1 (25.0-35.0) pg MCHC 32.1 (31.0-37.0) g/dL RDW 15.1 (11.5-15.5) % Plt Count 243 (150-450) k/uL Neutrophils % 86 % Lymphocytes % 8 % Monocytes % 5 % Eosinophils % 0 % Basophils % 0 % Neutrophils # 7.8 H (1.3-7.7) k/uL Lymphocytes # 0.7 L (1.0-4.8) k/uL Monocytes # 0.5 (0-1.0) k/uL Eosinophils # 0.0 (0-0.7) k/uL Basophils # 0.0 (0-0.2) k/uL PT 17.1 H (9.0-12.0) sec INR 1.7 H (<1.2) APTT 28.4 (22.0-30.0) sec Sodium 137 (137-145) mmol/L Potassium 4.1 (3.5-5.1) mmol/L Chloride 107 (98-107) mmol/L Carbon Dioxide 22 (22-30) mmol/L Anion Gap 8 mmol/L BUN 16 (7-17) mg/dL Creatinine 0.70 (0.52-1.04) mg/dL Est GFR (CKD-EPI)AfAm >90 (>60 ml/min/1.73 sqM) Est GFR (CKD-EPI)NonAf 80 (>60 ml/min/1.73 sqM) Glucose 127 H (74-99) mg/dL Calcium 9.1 (8.4-10.2) mg/dL Total Bilirubin 0.8 (0.2-1.3) mg/dL AST 25 (14-36) U/L ALT 6 (4-34) U/L Alkaline Phosphatase 90 (38-126) U/L Total Protein 6.3 (6.3-8.2) g/dL Albumin 4.0 (3.5-5.0) g/dL Disposition Is patient prescribed a controlled substance at d/c from ED?: No Time of Disposition: 16:04 <Fran Pham - Last Filed: 03/09/20 16:04> <Aparna Lazaro - Last Filed: 03/10/20 16:55> Clinical Impression: Hip fracture, History of Coumadin therapy Disposition: ADMITTED IP TO THIS HOSP Condition: Good
[2020-03-09 14:52] LABS: Basophils % (A) 0 %; Eosinophils % (A) 0 %; HCT 44.9 % (34.0-46.0); HGB 14.4 gm/dL (11.4-16.0); Lymphocytes # (A) 0.7 k/uL (1.0-4.8); Lymphocytes % (A) 8 %; MCH 29.1 pg (25.0-35.0); MCHC 32.1 g/dL (31.0-37.0); MCV 90.7 fL (80.0-100.0); Mean Platelet Volume 7.1; Monocytes # (A) 0.5 k/uL (0-1.0); Monocytes % (A) 5 %; Neutrophils # (A) 7.8 k/uL (1.3-7.7); Neutrophils % (A) 86 %; Platelet Count 243 k/uL (150-450); RBC 4.95 m/uL (3.80-5.40); RDW 15.1 % (11.5-15.5)
--- NOTE | 2020-03-09 15:00 | CT ---
EXAMINATION TYPE: CT brain hina wo con DATE OF EXAM: 03/09/2020 COMPARISON: 12/23/2019 HISTORY: 84-year-old female pain after fall on right hip CT DLP: 1422.8 mGycm Automated exposure control for dose reduction was used. Technique: Examination of the head was done in axial plane without intravenous contrast. Coronal and sagittal reconstructions performed. CT of the cervical spine was obtained in axial plane without intravenous injection of contrast mater ial. Coronal and sagittal reformatted images were obtained from the axial views for evaluation of f ractures, spinal alignment and canal. FINDINGS: Head: There is no evidence of acute intracranial hemorrhage, acute ischemic changes, or extra-axial fluid collection. There is no effacement of cerebral sulci or basal subarachnoid cisterns. There is no hy drocephalus. There is no midline shift. Urrutia-white matter distinction is preserved. Stable densely calcified extra-axial lesion along the floor of the left paramedian anterior cranial f von measuring 2.4 cm, unchanged. A second smaller 7 mm nodular extra-axial lesion anterior left fron stephy bone could represent a small meningioma, unchanged. Similar mild central cerebral volume loss and mild patchy white matter hypodensities in both cerebral hemispheres. Minimal scattered mucosal thickening ethmoid air cells. No calvarial fracture. Mastoid air cells are well pneumatized. Cervical spine: No previous cervical junction abnormality, predental space widening, or prevertebral soft tissue swel ling. Moderate distention plate degenerative change throughout the reversal of the normal cervical lordosis . Preserved alignment. Multilevel hypertrophic facet and uncovertebral joint arthropathy, greater on the left side. There is additional degenerative change along the left C1-C2 lateral mass articulation. Fairly mild a nd moderate neural foraminal stenosis throughout. No acute fracture seen though there is marked osteopenia. Sagittal and coronal reformatted images confirm above findings. Right apical pleural-parenchymal scarring. COMBINED IMPRESSION: 1. Stable 2.4 cm meningioma within the left anterior cranial fossa. Mild central cerebral atrophy and changes of chronic small vessel ischemic disease. No acute intracranial abnormality seen. 2. Moderate to advanced multilevel spondylotic change in the cervical spine. No acute fracture or mal alignment.
[2020-03-09 15:04] LABS: INR 1.7 (<1.2); Partial Thromboplastin Time 28.4 sec (22.0-30.0); Prothrombin Time 17.1 sec (9.0-12.0)
[2020-03-09 15:13] LABS: ALT 6 U/L (4-34); AST 25 U/L (14-36); African American GFR (CKD) >90 (>60 ml/min/1.73 sqM); Alkaline Phosphatase 90 U/L (38-126); Anion Gap 8 mmol/L; Blood Urea Nitrogen 16 mg/dL (7-17); Calcium 9.1 mg/dL (8.4-10.2); Carbon Dioxide 22 mmol/L (22-30); Chloride 107 mmol/L (98-107); Glucose 127 mg/dL (74-99); Non-African American GFR(CKD) 80 (>60 ml/min/1.73 sqM); Potassium 4.1 mmol/L (3.5-5.1); Sodium 137 mmol/L (137-145); Total Bilirubin 0.8 mg/dL (0.2-1.3); Total Protein 6.3 g/dL (6.3-8.2)
--- NOTE | 2020-03-09 15:16 | XR ---
EXAMINATION TYPE: AP view pelvis and 2 views right hip DATE OF EXAM: 03/09/2020 COMPARISON: 12/23/2019 HISTORY: 84-year-old female fall and pain FINDINGS: Irregularity of both superior and inferior pubic rami on the right is unchanged from 12/23/2019. Bony i rregularity along the anterior aspect of the right iliac crest suggests sequela of prior trauma or jurado rgery. There is a new comminuted intertrochanteric fracture of the proximal right femur with angulation and external rotation. No evident compromise of the lateral cortex. IMPRESSION: Comminuted and angulated fracture of the proximal right femur.
[2020-03-09] MEDS ORDERED: HYDROmorphone 0.5 MG/0.5 ML SYRINGE IVP STA (15:35)
[2020-03-09] MEDS ORDERED: ONDANSETRON 4 MG/2 ML VIAL IVP PRN (15:59)
[2020-03-09] MEDS ORDERED: NALOXONE 0.4 MG/ML 1 ML VIAL IV PRN (15:59)
[2020-03-09] MEDS: SODIUM CHLORIDE 0.9% 1,000 ML IV SCH ×3 (17:14→17:50)
[2020-03-09] MEDS ORDERED: ONDANSETRON 4 MG TAB PO PRN (20:17)
[2020-03-09] MEDS ORDERED: ALPRAZolam 0.25 MG TAB PO PRN (20:17)
[2020-03-09] MEDS ORDERED: hydrALAZINE HCL 20 MG/ML 1 ML VIAL IVP PRN (20:19)
[2020-03-09] MEDS: ACETAMINOPHEN TAB 500 MG TAB PO PRN (20:56)
[2020-03-09] MEDS: QUEtiapine 25 MG TAB PO SCH (20:56)
[2020-03-09] MEDS: NYSTATIN 100,000 UNIT/GM POWD 15 GM TOPICAL SCH (20:56)
[2020-03-09] MEDS: POTASSIUM CHLORIDE ER 10 MEQ TAB.ER.PRT PO SCH (20:56)
[2020-03-09] MEDS: ESTRADIOL 10 MCG VAGINAL SCH (20:57)
[2020-03-09] MEDS: guaiFENesin 600 MG TABLET.ER PO SCH (20:57)
[2020-03-09] MEDS: DILTIAZEM CD 180 MG CAP.ER.24H PO SCH (20:57)
[2020-03-09] MEDS: HYDROCORTISONE SUPPOSITORY 25 MG SUPP RECTAL SCH (20:57)
[2020-03-09] MEDS: CARBIDOPA-LEVODOPA 25-100 MG 1 EACH TAB PO SCH (20:59)
--- NOTE | 2020-03-09 22:05 | P.CNOR ---
History of Present Illness - [facility] Consult date: 03/09/20 Consult reason: fracture History of present illness: Patient's 84-year-old female with a history of dementia. Apparently she has had a number of falls and had a recent fall with new onset of right hip pain. The patient is not able to respond appropriately but does follow some simple commands. Most of her history is taken per her chart and from the nursing staff. She is not able to respond to questioning. She is arousable and alert. Review of Systems Unable to obtain due to dementia Past Medical History Past Medical History: Dementia, GERD/Reflux, Hyperlipidemia, Hypertension, Rheumatoid Arthritis (RA), Thyroid Disorder Additional Past Medical History / Comment(s): "Has ascending aortic aneurysm", Lewy body dementia, Parkinson's,hypothyroidism, gastroparesis history of multiple falls History of Any Multi-Drug Resistant Organisms: C-DIFF Year Discovered:: 2016-daughter unsure of exact date MDRO Source:: stool Past Surgical History: Appendectomy, Back Surgery, Orthopedic Surgery, Tonsillectomy Additional Past Surgical History / Comment(s): RIGHT LEG SURGERY, EGD Past Anesthesia/Blood Transfusion Reactions: No Reported Reaction Past Psychological History: No Psychological Hx Reported Smoking Status: Never smoker Past Alcohol Use History: None Reported Past Drug Use History: None Reported - Past Family History Father Family Medical History: Myocardial Infarction (MD) Mother Family Medical History: No Reported History Medications and Allergies Home Medications Medication Instructions Recorded Confirmed Type Levothyroxine Sodium [Synthroid] 75 mcg PO DAILY@0600 04/04/14 03/09/20 History Ondansetron [Zofran] 4 mg PO Q8H PRN 04/04/14 03/09/20 History lisinopriL [Prinivil] 20 mg PO DAILY@0600 04/04/14 03/09/20 History Carbidopa-Levodopa 25-100 mg 2 tab PO BID@0900,1300 08/04/18 03/09/20 History [Sinemet 25-100 mg] Diltiazem Cd [Cardizem CD] 180 mg PO HS 08/04/18 03/09/20 History Escitalopram [Lexapro] 10 mg PO AC-LUNCH 08/04/18 03/09/20 History Membrasin 2 cap PO DAILY 08/04/18 03/09/20 History Mineral Oil 2 drops BOTH EARS MOFR 08/04/18 03/09/20 History Polyethylene Glycol 3350 [Miralax] 8.5 gm PO Q72H 08/04/18 03/09/20 History Warfarin [Coumadin] 5 mg PO SUMOWETHSA 08/04/18 03/09/20 History guaiFENesin [Mucinex] 600 mg PO HS 08/04/18 03/09/20 History Domperidone 10mg 10 mg PO AC-TID 12/23/19 03/09/20 History Midnite Sleep Aid 1 tab PO AC-SUPPER 12/23/19 03/09/20 History Potassium Chloride ER [K-Dur 10] 10 meq PO BID 12/23/19 03/09/20 History QUEtiapine [SEROquel] 25 mg PO HS 12/23/19 03/09/20 History Warfarin [Coumadin] 2.5 mg PO TUFR 12/23/19 03/09/20 History ALPRAZolam [Xanax] 0.25 mg PO Q8H PRN 03/09/20 03/09/20 History Acetaminophen [Tylenol] 500 mg PO Q6H PRN 03/09/20 03/09/20 History Clobetasol Propionate [Temovate 1 applic VAGINAL TUTH 03/09/20 03/09/20 History 0.05% Cream] Ensure 1 can PO DAILY 03/09/20 03/09/20 History Estradiol [Vagifem] 10 mcg VAGINAL MOWEFR 03/09/20 03/09/20 History Hydrocortisone Acetate [Anusol-Hc] 25 mg RECTAL HS 03/09/20 03/09/20 History Nystatin 100,000 Unit/gm Powd 1 applic TOPICAL BID 03/09/20 03/09/20 History [Mycostatin Powder] Allergies Allergy/AdvReac Type Severity Reaction Status Date / Time amlodipine [From Norvasc] Allergy Unknown Verified 03/09/20 16:17 cefdinir [From Omnicef] Allergy Nausea & Verified 03/09/20 16:17 Vomiting iodine Allergy Rapid Verified 03/09/20 16:17 Heart Rate levofloxacin [From Levaquin] Allergy Nausea & Verified 03/09/20 16:17 Vomiting & Diarrhea Penicillins Allergy Rash/Hives Verified 03/09/20 16:17 Sulfa (Sulfonamide Allergy HIIVES Verified 03/09/20 16:17 Antibiotics) sulfamethoxazole Allergy Unknown Verified 03/09/20 16:17 [From Bactrim] trimethoprim [From Bactrim] Allergy Unknown Verified 03/09/20 16:17 metoclopramide HCl AdvReac FACAIL Verified 03/09/20 16:17 [From Reglan] Physical Examination Osteopathic Statement: *. No significant issues noted on an osteopathic structural exam other than those noted in the History and Physical/Consult. - Hip right Gait: other (The patient is unable to respond but will dorsiflex and plantarflex her ankles. She has obvious pain with motion at her right hip) Results - Labs Labs: Abnormal Lab Results - Last 24 Hours (Table) 03/09/20 03/09/20 03/09/20 Range/Units 14:38 14:38 14:38 Neutrophils # 7.8 H (1.3-7.7) k/uL Lymphocytes # 0.7 L (1.0-4.8) k/uL PT 17.1 H (9.0-12.0) sec INR 1.7 H (<1.2) Glucose 127 H (74-99) mg/dL H & H 03/09/20 Range/Units 14:38 Hgb 14.4 (11.4-16.0) gm/dL Hct 44.9 (34.0-46.0) % Coagulation 03/09/20 Range/Units 14:38 INR 1.7 H (<1.2) Result Diagrams: 03/09/20 14:38 03/09/20 14:38 - Diagnostic results Hip x-ray: report reviewed, image reviewed (Comminuted three-part intertrochanteric right femur fracture with displacement and angulation) Assessment and Plan Assessment: Acute intertrochanteric right femur fracture due to a fall Dementia Inability to ambulate Plan: Acute intertrochanteric right femur fracture due to a fall Dementia Inability to ambulate The patient has a new fracture at her right hip due to her fall. The patient has limited mobility and dementia but would be very unlikely to be able to get out of bed without surgical fixation of her right hip. I think the best treatment for her right hip femur fracture would be to pursue intramedullary hip screw for stabilization. The patient has atrial fibrillation and is on Coumadin with an INR 1.7. Her INR would have to drift down to normalize before she have surgery. It is likely that she we could plan for surgery on Thursday. The patient will remain on bedrest and will have a Anderson placed for her. I have discussed the case with medicine and they feel that she is clear for surgery once her INR is normalized. We'll plan for surgery this weekend. We'll obtain informed consent with her caregiver.
[2020-03-09] MEDS: HYDROmorphone 0.5 MG/0.5 ML SYRINGE IVP PRN (22:14)
[2020-03-10 01:53] LABS: Amorphous Sediment,Urine Rare /hpf; Appearance,Urine Cloudy (Clear); Bilirubin,Urine Negative (Negative); Blood,Urine Negative (Negative); Color,Urine Yellow; Glucose,Urine (UA) Negative (Negative); Ketones,Urine 1+ (Negative); Leukocyte Esterase,Urine Negative (Negative); Mucus,Urine Rare /hpf; Nitrite,Urine Negative (Negative); Protein,Urine Trace (Negative); RBC,Urine 1 /hpf (0-5); Specific Gravity,Urine 1.017 (1.001-1.035); Squamous Epithelial Cell,Urine 2 /hpf (0-4); Urobilinogen,Urine <2.0 mg/dL (<2.0); WBC,Urine 15 /hpf (0-5)
[2020-03-10] MEDS: HYDROmorphone 0.5 MG/0.5 ML SYRINGE IVP PRN ×2 (04:12→09:29)
[2020-03-10] MEDS: LEVOTHYROXINE 75 MCG TAB PO SCH (05:55)
[2020-03-10] MEDS: lisinopriL 20 MG TAB PO SCH (05:55)
[2020-03-10 06:47] LABS: Basophils % (A) 1 %; Eosinophils # (A) 0.1 k/uL (0-0.7); Eosinophils % (A) 1 %; HCT 39.9 % (34.0-46.0); HGB 12.7 gm/dL (11.4-16.0); Lymphocytes # (A) 1.1 k/uL (1.0-4.8); Lymphocytes % (A) 16 %; MCH 29.2 pg (25.0-35.0); MCHC 31.9 g/dL (31.0-37.0); MCV 91.4 fL (80.0-100.0); Mean Platelet Volume 6.9; Monocytes # (A) 0.6 k/uL (0-1.0); Monocytes % (A) 9 %; Neutrophils # (A) 4.7 k/uL (1.3-7.7); Neutrophils % (A) 72 %; Platelet Count 205 k/uL (150-450); RBC 4.37 m/uL (3.80-5.40); RDW 15.2 % (11.5-15.5); WBC 6.5 k/uL (3.8-10.6)
--- NOTE | 2020-03-10 07:18 | CONS ---
CONSULTATION REASON FOR CONSULTATION: Advice regarding multiple medical issues, including GERD, hypertension, hyperlipidemia and rheumatoid arthritis. HISTORY OF PRESENT ILLNESS: This 85-year-old woman with a past history of dementia, GERD, hypertension, hyperlipidemia, rheumatoid arthritis, C diff, history of back surgery, DJD and Parkinson's, being followed by Dr. Maldonado in the outpatient, living in an [facility] home. The patient apparently had a history of multiple falls because of the patient's Parkinson's. The patient is unable to give a coherent history. Most of the history taken from my discussion with staff and review of chart at this time. The patient apparently fell from a standing position in front of a sofa and the patient is complaining of hip pain. Patient came to [facility] and was admitted for further evaluation and treatment. A hip x-ray showed evidence of comminuted angulated fracture, proximal fracture of the right femur and a CT scan of the head was and cervical spine was also done which did not show any acute abnormality, otherwise 2.4 cm stable meningioma, moderate to advanced spondylitic changes also noted. There is no history of shortness of breath prior to admission this time. PAST MEDICAL HISTORY: History of dementia, GERD, hypertension, hyperlipidemia, rheumatoid arthritis, history of ascending aortic aneurysm, Lewey body dementia. HOME MEDICATIONS: 1. ( ). 2. Nystatin. 3. Prinivil. 4. Ensure. 5. Temovate, Zofran. 6. Xanax. 7. Tylenol. 8. Mucinex. 9. Coumadin. 10.Seroquel. 11.K-Dur ER. 12.Mineral oil. 13.Synthroid. 14.Anusol. 15.MiraLAX. 16.Lexapro. 17.Domperidone. 18.Cardizem CD. 19.Sinemet 2 tablets b.i.d. ALLERGIES: NORVASC, OMNICEF, IODINE, LEVAQUIN, PENICILLIN, ANTIBIOTICS, BACTRIM AND REGLAN. Family history, social history and review of systems could not be taken because the patient's mental status. PHYSICAL EXAM: Patient is conscious, nonverbal. Pulse 96, blood pressure 179/90, respirations 17, temperature 98.1, pulse ox 98% on room air . HEENT: Conjunctivae normal. Oral mucosa moist. NECK: No jugular venous distention. No lymph node enlargement. CARDIOVASCULAR: S1, S2, muffled. No S3, no S4, RESPIRATORY: Diminished breath sounds at the bases. No rhonchi, no crackles. ABDOMEN: Soft, nontender. No mass palpable. LEGS: Status post right femur fracture. NERVOUS SYSTEM: Higher functions mentioned earlier. Patient unable to cooperate with the full exam No focal deficits appreciate. LYMPHATICS: No lymph node in neck or axilla. SKIN: No rash. JOINTS: As mentioned earlier. LAB: At this time shows WBC 9, hemoglobin 14.9, INR 1.7 and glucose 127. EKG is not available. ASSESSMENT: 1. Status post fall and angulated fracture of the proximal right femur. 2. History of Parkinson's with falls. 3. History of dementia. 4. Gastroesophageal reflux disease. 5. Hypertension. 6. Hyperlipidemia. 7. History of rheumatoid arthritis. 8. History of ascending aortic aneurysm. 9. History of Lewey body dementia. 10.Hypothyroidism. 11.History of gastroparesis. 12.History of Clostridium difficile. 13.History of appendectomy. 14.History of degenerative joint disease, back surgery. 15.FULL CODE. RECOMMENDATIONS AND DISCUSSION: In this 84-year-old woman who presented with multiple complex medical issues, we will monitor the patient closely, continue the current medications, symptomatic treatment. Otherwise, resume the home medications. I would recommend to hold the Coumadin for now. Monitor PT, INR. Patient is medically stable for surgery and medically cleared for surgery. We will follow the patient closely with you and DVT prophylaxis and patient may be asked to follow up with Dr. Maldonado closely after discharge. Follow up labs also recommended. Thank you Dr. Mota, for letting us participate in the care of this patient. MMODL / IJN: [id number] /
[2020-03-10] MEDS: PANTOPRAZOLE 40 MG TABLET PO SCH (07:46)
[2020-03-10] MEDS: POTASSIUM CHLORIDE ER 10 MEQ TAB.ER.PRT PO SCH ×2 (07:47→19:50)
[2020-03-10] MEDS: CARBIDOPA-LEVODOPA 25-100 MG 1 EACH TAB PO SCH ×2 (07:47→12:07)
[2020-03-10] MEDS: NYSTATIN 100,000 UNIT/GM POWD 15 GM TOPICAL SCH ×2 (07:47→19:51)
[2020-03-10 09:11] LABS: INR 1.54 (0.90-1.11); Prothrombin Time 16.2 sec (9.9-11.9)
[2020-03-10 09:18] LABS: African American GFR (CKD) 78.5 (60.0-200.0); Anion Gap 5.7 mmol/L (4.00-12.00); BUN/Creat Ratio 18.75 Ratio (12.00-20.00); Calcium 8.7 mg/dL (8.7-10.3); Carbon Dioxide 27.3 mmol/L (21.6-31.8); Non-African American GFR(CKD) 67.7 (60.0-200.0); Potassium 4.3 mmol/L (3.5-5.5)
--- NOTE | 2020-03-10 09:18 | P.PN ---
Progress Note - Text Progress Note Date: 03/10/20 Patient is seen and examined today at bedside. She is more alert today but still confused. She complains of pain at her right hip whenever she moves. She is afebrile stable vital signs Her thighs and calf soft nontender she has pain at her right hip with any sort of motion or pressure. Sensory is intact in her feet. She has dorsal flexion plantarflexion. INR today is 1.5 for Assessment and plan Right hip comminuted intertrochanteric acute femur fracture due to a fall Dementia Right hip pain Inability to ambulate due to hip fracture Elevated INR with Coumadin held The patient is scheduled to undergo surgical fixation of her right hip tomorrow. Her INR still high today but hopefully it will continue to taper down as her Coumadin has been held. She is remaining on bed rest for now until we can start to mobilize after the surgery. It is okay for her to have regular diet today and she'll be nothing by mouth after midnight. I discussed the case with medicine yesterday and she is cleared to proceed with surgical intervention hopefully tomorrow if her INR normalizes further.
[2020-03-10] MEDS: DOMPERIDONE 10 MG PO SCH ×4 (09:33→17:13)
[2020-03-10] MEDS: ESCITALOPRAM 10 MG TAB PO SCH (12:07)
[2020-03-10] MEDS: ACETAMINOPHEN TAB 500 MG TAB PO PRN (19:50)
[2020-03-10] MEDS: HYDROCORTISONE SUPPOSITORY 25 MG SUPP RECTAL SCH (19:50)
[2020-03-10] MEDS: guaiFENesin 600 MG TABLET.ER PO SCH (19:50)
[2020-03-10] MEDS: DILTIAZEM CD 180 MG CAP.ER.24H PO SCH (19:51)
[2020-03-10] MEDS: QUEtiapine 25 MG TAB PO SCH (19:51)
--- NOTE | 2020-03-10 21:03 | PN ---
PROGRESS NOTE DATE OF SERVICE: 03/10/2020 This 85-year-old woman with a past medical history of multiple complex medical issues, admitted with a fall and angulated fracture of the proximal right femur. Orthopedic surgery, Dr. Mota has seen the patient and recommending surgical fixation on Thursday. The patient continues to be confused. Patient being closely monitored at this time. Past medical history reviewed. REVIEW OF SYMPTOMS: Could not be taken. CURRENT MEDICATIONS: Reviewed and include: 1. Tylenol. 2. Xanax. 3. Sinemet. 4. Temovate. 5. Lexapro. 6. Mucinex. 7. Apresoline. 8. Anusol HC. 9. Dilaudid. 10.Zestril. 11.Narcan. 12.Mycostatin. 13.Zofran. 14.Protonix. 15.MiraLAX. 16.Seroquel. PHYSICAL EXAM: Patient is alert and oriented x 1. Pulse 77. Blood pressure 130/74, respirations 18, temperature 97.2, pulse ox 94% on 2 L. HEENT: Conjunctivae normal. NECK: No JVD. CARDIOVASCULAR: S1, S2 muffled. RESPIRATIONS: Breath sounds diminished in the bases. No rhonchi. No crackles. ABDOMEN: Soft, nontender. LEGS are no edema. No swelling. NERVOUS SYSTEM: No focal deficits. LABS: INR is 1.54. UA shows UTI. ASSESSMENT: 1. Status post fall and angulated fracture of the proximal right femur. 2. History of Parkinson's disease and falls. 3. Dementia. 4. Acute urinary tract infection present on admission. 5. Gastroesophageal reflux disease. 6. Hypertension. 7. Hyperlipidemia. 8. History of change in mental status, metabolic encephalopathy, acute, multifactorial. 9. History of rheumatoid arthritis. 10.History of ascending aortic aneurysm. 11.History of Lewy body dementia. 12.Hypothyroidism. 13.History of gastroparesis. 14.History of C difficile. 15.History of appendectomy. 16.History of degenerative joint disease, back surgery. 17.FULL CODE. RECOMMENDATIONS AND DISCUSSION: Recommend to continue current medications, symptomatic treatment. Otherwise at this time, I would also recommend a course of antibiotics. Closely follow with Orthopedic Surgery. Prognosis guarded because of multiple complex medical issues. Further recommendations to follow. See orders for details. MMODL / IJN: [id number] /
[2020-03-11] MEDS: HYDROmorphone 0.5 MG/0.5 ML SYRINGE IVP PRN (05:14)
[2020-03-11] MEDS: lisinopriL 20 MG TAB PO SCH (05:15)
[2020-03-11] MEDS: LEVOTHYROXINE 75 MCG TAB PO SCH (05:15)
[2020-03-11 06:08] LABS: Basophils % (A) 0 %; Eosinophils % (A) 1 %; HCT 38.5 % (34.0-46.0); HGB 12.2 gm/dL (11.4-16.0); Hypochromasia Slight; Lymphocytes # (A) 0.8 k/uL (1.0-4.8); Lymphocytes % (A) 12 %; MCH 29.1 pg (25.0-35.0); MCHC 31.6 g/dL (31.0-37.0); MCV 91.9 fL (80.0-100.0); Mean Platelet Volume 6.8; Monocytes # (A) 0.4 k/uL (0-1.0); Monocytes % (A) 6 %; Neutrophils # (A) 5.4 k/uL (1.3-7.7); Neutrophils % (A) 80 %; Platelet Count 214 k/uL (150-450); RBC 4.19 m/uL (3.80-5.40); RDW 15.1 % (11.5-15.5); WBC 6.7 k/uL (3.8-10.6)
[2020-03-11] MEDS ORDERED: SUCCINYLCHOLINE CHLORIDE 100 MG/5 ML SYR IV ONE (08:57)
[2020-03-11] MEDS ORDERED: fentaNYL (PF) 50 MCG/ML 2 ML AMP ONE (08:57)
[2020-03-11] MEDS ORDERED: ETOMIDATE 2 MG/ML 10 ML VIAL ONE (08:57)
[2020-03-11] MEDS ORDERED: LIDOCAINE 1% INJ 10MG/ML (20 ML MDV) ONE (08:57)
[2020-03-11] MEDS: PANTOPRAZOLE 40 MG TABLET PO SCH (08:58)
[2020-03-11] MEDS: DOMPERIDONE 10 MG PO SCH ×3 (08:58→17:08)
[2020-03-11] MEDS ORDERED: LACTATED RINGERS 1,000 ML IV ONE (08:59)
[2020-03-11] MEDS ORDERED: SODIUM CHLORIDE 0.9% 50 ML with CLINDAMYCIN 600 MG IV ONE ×2 (09:22)
[2020-03-11 09:27] LABS: African American GFR (CKD) 92.2 (60.0-200.0); Anion Gap 6.2 mmol/L (4.00-12.00); Calcium 8.6 mg/dL (8.7-10.3); Carbon Dioxide 28.8 mmol/L (21.6-31.8); INR 1.48 (0.90-1.11); Non-African American GFR(CKD) 79.6 (60.0-200.0); Potassium 3.9 mmol/L (3.5-5.5); Prothrombin Time 15.6 sec (9.9-11.9)
--- NOTE | 2020-03-11 10:40 | FL ---
EXAMINATION TYPE: FL guidance operating room, XR Hip Limited RT DATE OF EXAM: 03/11/2020 CLINICAL HISTORY: Right hip fracture. TECHNIQUE: Fluoroscopy. Intraoperative limited views right hip. COMPARISON: Pelvic and right hip x-ray 2 days earlier.. FINDINGS: Fluoroscopic guidance was provided during open reduction and internal fixation procedure p erformed by Dr. Mota. A total of 1.5 minutes of fluoroscopic time was utilized during the procedure and 3 spot intraoperative images are acquired. Intraoperative images acquired show placement of intramedullary bar with distal transverse fixating s crew and proximal larger femoral neck fixating screw through the intertrochanteric fracture right pro ximal femur. Satisfactory alignment is seen on intraoperative images obtained. IMPRESSION: As Above.
[2020-03-11] MEDS ORDERED: BENZOCAINE/MENTHOL LOZENG 1 EACH LOZENGE MUCOUS MEM PRN (10:49)
[2020-03-11] MEDS ORDERED: NALOXONE 0.4 MG/ML 1 ML VIAL IV PRN (10:49)
[2020-03-11] MEDS ORDERED: HYDROmorphone 0.5 MG/0.5 ML SYRINGE IVP PRN (10:49)
[2020-03-11] MEDS ORDERED: HYDROcodone/APAP 5-325MG 1 EACH TAB PO PRN (10:49)
[2020-03-11] MEDS ORDERED: MAGNESIUM HYDROXIDE 2,400 MG/10 ML CUP PO PRN (10:49)
[2020-03-11] MEDS ORDERED: traMADol 50 MG TAB PO PRN (10:49)
[2020-03-11] MEDS ORDERED: ACETAMINOPHEN TAB 325 MG TAB PO PRN (10:49)
[2020-03-11] MEDS ORDERED: ONDANSETRON 4 MG/2 ML VIAL IVP PRN (10:49)
--- NOTE | 2020-03-11 11:00 | P.OP ---
Date of Procedure: 03/11/20 Preoperative Diagnosis: Right hip comminuted and displaced intertrochanteric femur fracture acute status post fall Right hip pain Dementia Postoperative Diagnosis: Same Anesthesia: GETA Pathology: other (Right proximal femur reaming sent to pathology) Condition: stable Disposition: PACU Description of Procedure: Preoperative diagnosis: Right hip comminuted and displaced intertrochanteric femur fracture acute status post fall Right hip pain Dementia Postoperative diagnosis: Same Procedure: intertrochanteric hip screw placement right femur Use of fluoroscopic guidance Closed reduction Surgeon: Dr. Mota Asst.: Surgical scrub nurse who is present that the entire the case persistence during positioning dissection exposure placement of hardware and closure Anesthesia: Gen. per Dr. Espino Estimated blood loss: Approximate 200 mL Components implanted: [employer] InterTAN 11.5 x 125 bar with a 105 mm lag screw , 100 mm compression screw and a 30 mm distal locking screw Disposition: To recovery room in good stable condition Operative indications The patient sustained a injury and suffered a hip fracture at the inter- trochanteric area of her femur which was displaced and angulated. The patient is a minimal ambulator but normally is able to do some transfers on her own. She lives in assisted living as she has severe dementia. She has been having more regular falls recently and had sustained a fall when she is trying to transfer and suffered a comminuted and displaced proximal femur intertroch anteric fracture. We were involved in the case in regard to his hip fracture. After evaluation it was determined that they would be a candidate for hip internal fixation and stabilization via surgical intervention. This would give them the best chance of mobilization and ambulation. We discussed the range of treatment options from conservative to surgical with the staff and the patient's family as the patient has significant dementia. They elected proceed with surgical intervention. We answered their questions to the best of our ability healing which they can understand. They signed an informed consent. Operative summary After obtaining informed consent from the family, evaluation by anesthesia, preoperative evaluation and clearance for medical service, the patient was identified and prepped Anderson area and the surgical site was marked. There brought to the operating room where the given appropriate anesthesia by the anesthesia department in standard fashion without any complications. Once the anesthesia was established we were able to position the patient. The patient was placed on a fracture table with a well-padded perineal post. The operative side was placed in a foot edward stirrup which was well-padded well molded and placed in gentle in-line traction. The nonoperative leg was placed in a padded stirrup. C-arm was brought in and we performed a closed reduction technique at the hip. We are able to get good alignment good position of the intertrochanteric fracture with gentle reduction techniques and traction utilizing the fracture table. The fracture was severely comminuted and frail but we were able to get good alignment and position of the fracture fragments with the patient on the fracture table. Once patient was well positioned lower extremity was prepped and draped in normal standard sterile fashion. An appropriate keystone protocol and timeout was completed and were able to proceed with surgery. He started point just proximal to the greater trochanter was established and a median incision approximately 2 inches in length approximately to the greater trochanter. I dissected down through the fascia and I was able to expose the tip of the greater trochanter. A sharp starting hole was established at the tip of the greater trochanter near the junction of the anterior and middle third. Positioning was confirmed with C-arm guidance. I was able to start the awl into the bone and then use a guidepin at the starting point establish down to the level of the lesser trochanter at the intramedullary space. I then used a starting reamer for the greater trochanter placed over the guidepin and reamed down appropriately under C-arm guidance. I was unable to place a guidepin into the intramedullary aspect of the femur and then reamed appropriately to the appropriate length. The positioning was confirmed on C-arm guidance. With the femur appropriately reamed I then chose the appropriate size intramedullary bar which was connected to the appropriate jig. The jig was checked for alignment. The area was copiously irrigated and suctioned dry and we're able place the bar at intramedullary space through the starting hole appropriately. It was seated down for appropriate position to align the leg pain into the femoral neck and head. A second incision was established at the site for the placement of the lag screw area and the guide was established at the lateral aspect of the femur and a guidepin was drilled into the femoral neck and head and near center center position. With this appropriate alignment and position where a reamer over the guidepin making sure not to penetrate the articular surface. The position was confirmed on C-arm guidance in AP and lateral positions. With this established we were able to place the appropriate size lag screw after measuring. Lag screw was placed into the femoral neck and head good alignment good position with excellent bony purchase. It was appropriately aligned and we placed a locking screw through the bar appropriately and checked that the position was established. I was able to drill and place the compression screw immediately adjacent and inferior to the lag screw which gave good compression across the fracture site in good alignment and position. With the area in good position able place a distal locking screw. We utilized the guide sleeve a separate incision was made at the skin. The guide sleeve was placed in the lateral aspect of the femur and the distal locking screw hole was established through the femur and distal locking hole of the intramedullary bar. It was measured appropriately and a distal locking screw was placed in good alignment and good position with excellent bony purchase. The position was checked to make sure it was through the appropriate hole in the intramedullary bar. With this established we're able to remove the jig completely from the bar and final images were taken which showed excellent alignment and position of the hardware and the fracture. With the bar in place and the fracture stable, although the incision sites were copiously irrigated and suctioned dry. Good hemostasis was maintained. Deep fascial layers were closed with #1 Vicryl. Subcu tissue was closed with 2-0 Vicryl. Subcuticular tissues closed with 3-0 Vicryl. Was are cleaned and dried with dressed with Mastisol and Steri-Strips Telfa for a force and tape. Drapes were broken down, the hip was held in stable position with the post being removed safely once the positioning was stabilized. The patient was then transferred back to their hospital bed being careful to maintain the hip and C- spine alignment and airway. Once stable to patient was transferred back to the postanesthesia care unit to be readmitted for pain control and DVT prophylaxis medical management and monitoring and mobilization we will continue follow patient closely throughout their postoperative course.
[2020-03-11 13:04] LABS: Basophils % (A) 0 %; Eosinophils % (A) 0 %; HCT 37.8 % (34.0-46.0); HGB 11.7 gm/dL (11.4-16.0); Hypochromasia Slight; Lymphocytes # (A) 0.9 k/uL (1.0-4.8); Lymphocytes % (A) 10 %; MCH 28.5 pg (25.0-35.0); MCHC 30.9 g/dL (31.0-37.0); MCV 92.2 fL (80.0-100.0); Mean Platelet Volume 7.1; Monocytes # (A) 0.5 k/uL (0-1.0); Monocytes % (A) 6 %; Neutrophils # (A) 7.1 k/uL (1.3-7.7); Neutrophils % (A) 82 %; Platelet Count 186 k/uL (150-450); RDW 15.4 % (11.5-15.5); WBC 8.6 k/uL (3.8-10.6)
[2020-03-11] MEDS: CARBIDOPA-LEVODOPA 25-100 MG 1 EACH TAB PO SCH ×2 (14:33→15:28)
[2020-03-11] MEDS: NYSTATIN 100,000 UNIT/GM POWD 15 GM TOPICAL SCH ×2 (14:34→19:40)
[2020-03-11] MEDS: polyethylene glycoL 3350 17 GM POWD.PACK PO SCH (14:34)
[2020-03-11] MEDS: SODIUM CHLORIDE 0.9% 1,000 ML IV SCH ×2 (15:13→15:31)
[2020-03-11] MEDS: ESCITALOPRAM 10 MG TAB PO SCH (15:29)
[2020-03-11] MEDS: POTASSIUM CHLORIDE ER 10 MEQ TAB.ER.PRT PO SCH ×2 (15:29→19:40)
[2020-03-11] MEDS: CLINDAMYCIN 900 MG in DEXTROSE 5% IN WATER 50 ML IVPB SCH ×4 (15:32→20:40)
--- NOTE | 2020-03-11 15:32 | PN ---
PROGRESS NOTE DATE OF SERVICE: 03/11/2020. HISTORY: This 85-year-old woman who was admitted after a fall and right proximal fracture underwent intertrochanteric hip screw placement by Dr. Mota. The patient is sedated after the procedure at this time. No chest pain. No palpitations. No fever. PHYSICAL EXAMINATION: Alert and oriented x1. The patient is mildly arousable. Pulse is 91, blood pressure 120/80, respiration 18, temperature 98.4, pulse ox 98% on 2 L. HEENT: Conjunctivae normal. NECK: Supple. LUNGS: Breath sounds diminished at the bases. No rhonchi no crackles. ABDOMEN: Soft nontender. LEGS: Status post surgery. NERVOUS SYSTEM: Could not be examined. LABS: WBC 8.2, hemoglobin 11.7, INR 1.48. ASSESSMENT: 1. Status post fall and right hip comminuted and displaced intertrochanteric femur fracture, status post intertrochanteric hip screw placement. 2. History of Parkinson's disease and falls. 3. Dementia. 4. Acute urinary tract infection, present on admission, on empiric antibiotics. 5. Gastroesophageal reflux disease. 6. Hypertension. 7. Hyperlipidemia. 8. Change in mental status, metabolic encephalopathy, acute on chronic. 9. History of rheumatoid arthritis. 10.History of ascending aortic aneurysm. 11.History of Lewy Body dementia. 12.Hypothyroidism. 13.History of gastroparesis. 14.History of Clostridium difficile colitis. 15.History of appendectomy. 16.History of DJD, back surgery. 17.FULL CODE. RECOMMENDATIONS AND DISCUSSION: I recommend to continue symptomatic treatment. Otherwise, a short course of antibiotics which may be stopped tomorrow. Further recommendations to follow. MMODL / IJN: [id number] /
[2020-03-11] MEDS: WARFARIN 5 MG TAB PO SCH (17:08)
[2020-03-11] MEDS: QUEtiapine 25 MG TAB PO SCH (19:40)
[2020-03-11] MEDS: guaiFENesin 600 MG TABLET.ER PO SCH (19:40)
[2020-03-11] MEDS: DILTIAZEM CD 180 MG CAP.ER.24H PO SCH (19:41)
[2020-03-11] MEDS: HYDROCORTISONE SUPPOSITORY 25 MG SUPP RECTAL SCH (19:41)
[2020-03-12] MEDS: lisinopriL 20 MG TAB PO SCH (04:55)
[2020-03-12] MEDS: LEVOTHYROXINE 75 MCG TAB PO SCH (04:55)
[2020-03-12 05:10] LABS: Basophils % (A) 0 %; Eosinophils # (A) 0.1 k/uL (0-0.7); Eosinophils % (A) 2 %; HCT 31.7 % (34.0-46.0); HGB 10.1 gm/dL (11.4-16.0); Hypochromasia Slight; Lymphocytes # (A) 0.9 k/uL (1.0-4.8); Lymphocytes % (A) 14 %; MCH 29.3 pg (25.0-35.0); MCHC 31.8 g/dL (31.0-37.0); MCV 92.4 fL (80.0-100.0); Mean Platelet Volume 7.3; Monocytes # (A) 0.5 k/uL (0-1.0); Monocytes % (A) 7 %; Neutrophils # (A) 4.7 k/uL (1.3-7.7); Neutrophils % (A) 75 %; Platelet Count 174 k/uL (150-450); RBC 3.43 m/uL (3.80-5.40); RDW 15.3 % (11.5-15.5); WBC 6.2 k/uL (3.8-10.6)
[2020-03-12] MEDS: DOMPERIDONE 10 MG PO SCH ×3 (08:09→17:42)
[2020-03-12] MEDS: NYSTATIN 100,000 UNIT/GM POWD 15 GM TOPICAL SCH ×2 (08:10→21:58)
[2020-03-12] MEDS: CARBIDOPA-LEVODOPA 25-100 MG 1 EACH TAB PO SCH ×2 (08:10→12:31)
[2020-03-12] MEDS: PANTOPRAZOLE 40 MG TABLET PO SCH (08:10)
[2020-03-12] MEDS: POTASSIUM CHLORIDE ER 10 MEQ TAB.ER.PRT PO SCH ×2 (08:11→21:57)
[2020-03-12] MEDS: SODIUM CHLORIDE 0.9% 1,000 ML IV SCH ×3 (08:13→17:47)
[2020-03-12] MEDS ORDERED: ENSURE PO SCH (09:00)
--- NOTE | 2020-03-12 11:00 | P.PN ---
Progress Note - Text Progress Note Date: 03/12/20 Orthopedics: History of present illness: Patient is a pleasant 84-year-old female with known dementia who is seen and examined at bedside for further evaluation of her right hip. She is status post right hip intramedullary nail fixation for intertrochanteric hip fracture performed yesterday, 03/12/2020. Patient had sustained a fall resulting in her hip fracture. Patient is not complaining of pain at the bedside. Her dressing over the right hip is clean, dry, and intact. Patient does have difficulty with following commands. She is able to wiggle toes of the right foot. She is unable to follow commands to perform active range of motion of the right ankle. A Anderson catheter is intact. She is arousable but is not oriented to place or time. Continues to be seeing exam by medicine for her other medical diagnoses including history of Parkinson's disease, history of multiple falls, dementia, and acute urinary tract infection currently on antibiotic medication Physical Exam Intramedullary Rodding for Intertrochanteric Fracture: Status post surgical day number 1 Patient is examined lying in bed Patient is arousable but does have confusion She has difficulty following all commands Vital signs stable Adequate chest excursion with deep inspiration and expiration; patient currently on O2 nasal cannula No signs or symptoms of DVT; no calf pain Lower extremity cuffs in place bilaterally Dressing of the right hip is clean, dry, and intact; no erythema, purulence, or signs of infection Mild pain with palpation over the surgical sites Patient is able to wiggle toes of the right foot Patient is unable to follow commands to perform dorsiflexion and plantarflexion with the right foot Neurovascularly intact bilateral lower extremities Capillary refill less than 2 seconds bilateral lower extremities Assessment: Status post right intramedullary nail fixation for left intertrochanteric hip fracture Status post fall Parkinson's disease History of multiple falls Dementia Acute urinary tract infection currently on antibiotics Plan: 1. Patient to remain nonweightbearing on the right lower extremity; patient may work with physical therapy to increase mobility and ambulation 2. Keep dressing over the right hip clean, dry, and intact 3. Discontinue Anderson catheter when patient is able to increase mobility and ambulation 4. Continue pain control with oral tramadol and IV Dilaudid as needed for pain control 5. Continue with anticoagulation therapy with Coumadin as monitored by pharmacy 6. Medicine to continue following the patient for their other medical diagnosis including Parkinson's disease, dementia, frequent falls, and acute urinary tract infection 7. We'll continue to follow the patient closely; depending on the patient's progress, we may plan for discharge as early as tomorrow, 03/13/2020 , to [facility] 8. Patient can follow-up with Michael Kenney PA-C or Dr. Deonte Mota at [facility] in 2-3 weeks following discharge
[2020-03-12] MEDS: ESCITALOPRAM 10 MG TAB PO SCH (12:31)
--- NOTE | 2020-03-12 12:34 | P.PN ---
Subjective This is a pleasant 84 years old female with multiple medical problems was admitted under orthopedic service for a fall at right hip fracture status post right intertrochanteric hip screw placement. Today postop day #1. She is lying in bed comfortable, looks confused but, and she follows commands. She denies pain or any distress. She is slightly tachypneic but THAT is to be coughing. Abdomen looks soft although she has some loose bowel movement. Not sure about her urinary complaints. She had low-grade temperature yesterday of 101.2. Carlyle watkins is already started on Rocephin. And no source of infection could be UTI however her urinalysis is not very impressive for UTI although it has increased obesity 15 per high-power field. Repeat UA and asked for chest x-ray. We will lower her normal saline from 75 down to 40 mL per hour. She remains on Coumadin for her history of DVT and her INR is 1.4. Stable to her 8 mg of Coumadin Objective - Vital Signs Vital signs: Vital Signs Temp 98.0 F 03/12/20 11:53 Pulse 91 03/12/20 11:53 Resp 16 03/12/20 11:53 BP 108/60 03/12/20 11:53 Pulse Ox 95 03/12/20 11:53 Intake & Output 03/11/20 03/12/20 03/12/20 18:59 06:59 18:59 Intake Total 2174 1100 220 Output Total 1200 650 Balance 974 450 220 Weight 58.967 kg Intake: IV 104 Intake, IV Titration 1950 900 Amount Clindamycin 900 mg In 50 Dextrose 5% in Water 50 ml @ 50 mls/hr IVPB Q6H [facility] Rx#:[id number] Lactated Ringers 1,000 ml 1000 @ 0 mls/hr IV .[facility] Rx#:[id number] Sodium Chloride 0.9% 1, 900 900 000 ml @ 75 mls/hr IV . [id number] [facility] Rx#:[id number] Oral 120 200 220 Output: Urine 1000 650 Uretheral (Anderson) 600 300 Estimated Blood Loss 200 Other: Voiding Method Indwelling Catheter Indwelling Catheter Indwelling Catheter # Voids 1 - Exam -GENERAL: The patient is alert awake but confused. Not in acute distress. HEENT: Pupils are round and equally reacting to light. EOMI. No scleral icterus. No conjunctival pallor. Normocephalic, atraumatic. No pharyngeal erythema. No thyromegaly. CARDIOVASCULAR: S1 and S2 present. No murmurs, rubs, or gallops. PULMONARY: Chest is clear to auscultation, no wheezing or crackles. ABDOMEN: Soft, nontender, nondistended, normoactive bowel sounds. No palpable organomegaly. MUSCULOSKELETAL: No joint swelling or deformity. -EXTREMITIES: No cyanosis, clubbing, or pedal edema. Right hip wound is dry and clean with dressing is in place NEUROLOGICAL: Gross neurological examination did not reveal any focal deficits. SKIN: No rashes. no petechiae. - Labs CBC & Chem 7: 03/12/20 04:41 03/11/20 05:29 Labs: Abnormal Lab Results - Last 24 Hours (Table) 03/11/20 03/12/20 Range/Units 12:35 04:41 RBC 3.43 L (3.80-5.40) m/uL Hgb 10.1 L (11.4-16.0) gm/dL Hct 31.7 L (34.0-46.0) % MCHC 30.9 L (31.0-37.0) g/dL Lymphocytes # 0.9 L 0.9 L (1.0-4.8) k/uL Microbiology - Last 24 Hours (Table) 03/10/20 20:47 Blood Culture - Preliminary Blood No Growth after 24 hours 03/10/20 21:04 Urine Culture - Preliminary Urine,Catheterized Assessment and Plan Assessment: Status post fall Right hip fracture status post intertrochanteric right hip screw placement Fever, possible urinary tract infection, present on admission Gastroenteritis, mostly reactive History of Parkinson disease Dementia with chronic confusion Gastroesophageal reflux disease Hypertension Hyperlipidemia Metabolic encephalopathy History of rheumatoid arthritis History of ascending aortic aneurysm History of fluid but to dimension Hypothyroidism History of gastroparesis Plan: This is a pleasant 84 years old female who presents with hip fracture status post right screw placement. Orthopedic team R following the case closely. Continue with pain management and DVT prophylaxis per Surgery team. Resume Coumadin and check INR. Check urine analysis and chest x-ray Labs and medication were reviewed.. Continue same treatment. Continue with symptomatic treatment. Resume home medication. Monitor lytes and vitals. DVT and GI prophylaxis. Further recommendationsas per clinical course of the patient DVT prophylaxis: Coumadin GI Prophylaxis: Ppi PT/OT: Pending Prognosis is guarded
[2020-03-12 13:14] LABS: Appearance,Urine Cloudy (Clear); Bacteria,Urine Rare /hpf; Bilirubin,Urine Negative (Negative); Blood,Urine Moderate (Negative); Color,Urine Dark Yellow; Glucose,Urine (UA) Negative (Negative); Hyaline Casts,Urine 9 /lpf (0-2); Ketones,Urine 3+ (Negative); Leukocyte Esterase,Urine Large (Negative); Mucus,Urine Many /hpf; Nitrite,Urine Negative (Negative); Protein,Urine 1+ (Negative); RBC,Urine 177 /hpf (0-5); Specific Gravity,Urine 1.036 (1.001-1.035); Squamous Epithelial Cell,Urine 5 /hpf (0-4); Urobilinogen,Urine <2.0 mg/dL (<2.0); WBC,Urine 90 /hpf (0-5)
--- NOTE | 2020-03-12 13:27 | XR ---
EXAMINATION TYPE: XR chest 1V DATE OF EXAM: 03/12/2020 COMPARISON: Chest x-ray 12/23/2019 HISTORY: Fever TECHNIQUE: Single frontal view of the chest is obtained. FINDINGS: Patient is rotated. There are overlying artifacts present. Arthropathy noted in the should ers. Aorta is dense and enlarged. Retrocardiac lucency may be indicative of partial intrathoracic sto mach. Heart size is stable. No evident pneumothorax. Difficult to exclude retrocardiac density. Left hemidiaphragm is obscured. IMPRESSION: Probable left lower lobe atelectasis, correlate to exclude pneumonia, follow-up PA and l ateral chest x-ray may be of benefit. Known thoracic aortic aneurysm.
[2020-03-12 13:50] LABS: African American GFR (CKD) 68.1 (60.0-200.0); BUN/Creat Ratio 25.56 Ratio (12.00-20.00); Non-African American GFR(CKD) 58.7 (60.0-200.0); Potassium 4.1 mmol/L (3.5-5.5)
[2020-03-12 14:18] LABS: INR 1.86 (0.90-1.11); Prothrombin Time 19.4 sec (9.9-11.9)
[2020-03-12] MEDS: WARFARIN 5 MG TAB PO SCH (17:42)
[2020-03-12] MEDS ORDERED: WARFARIN 3 MG TAB PO ONE (18:00)
[2020-03-12] MEDS: DILTIAZEM CD 180 MG CAP.ER.24H PO SCH (21:56)
[2020-03-12] MEDS: guaiFENesin 600 MG TABLET.ER PO SCH (21:57)
[2020-03-12] MEDS: ESTRADIOL 10 MCG VAGINAL SCH (21:57)
[2020-03-12] MEDS: QUEtiapine 25 MG TAB PO SCH (21:57)
[2020-03-12] MEDS: HYDROCORTISONE SUPPOSITORY 25 MG SUPP RECTAL SCH (21:57)
[2020-03-13] MEDS: LEVOTHYROXINE 75 MCG TAB PO SCH (05:21)
[2020-03-13] MEDS: lisinopriL 20 MG TAB PO SCH (05:21)
--- NOTE | 2020-03-13 07:44 | P.PN ---
Subjective This is a pleasant 84 years old female with multiple medical problems was admitted under orthopedic service for a fall at right hip fracture status post right intertrochanteric hip screw placement. Today postop day #1. She is lying in bed comfortable, looks confused but, and she follows commands. She denies pain or any distress. She is slightly tachypneic but THAT is to be coughing. Abdomen looks soft although she has some loose bowel movement. Not sure about her urinary complaints. She had low-grade temperature yesterday of 101.2. Carlyle watkins is already started on Rocephin. And no source of infection could be UTI however her urinalysis is not very impressive for UTI although it has increased obesity 15 per high-power field. Repeat UA and asked for chest x-ray. We will lower her normal saline from 75 down to 40 mL per hour. She remains on Coumadin for her history of DVT and her INR is 1.4. And 1.8 Continue with Coumadin 03/13/2020 She needs more sleepy today and her to wake up, most likely patient is delirious from her infection. She had a fever of 101.22 nights ago, no more fever since yesterday. Rest of vitals are stable. Repeat UA is highly suspicious of infection. Urine culture is pending. Chest x-ray favors left lower lobe atelectasis over pneumonia. Lacie better yesterday is 1.8. Today is pending and we will follow up the result with the plan to continue with Coumadin. Continue with Rocephin for now on follow-up urine culture not blood culture. Review of systems: N/a Active Medications Generic Name Dose Route Start Last Admin Trade Name Freq PRN Reason Stop Dose Admin Acetaminophen 500 mg 03/09/20 20:17 03/10/20 19:50 Acetaminophen Tab 500 Mg Tab PO 500 mg Q6H PRN Administration Pain Acetaminophen 650 mg 03/11/20 10:49 03/11/20 20:40 Acetaminophen Tab 325 Mg Tab PO 650 mg Q4HR PRN Administration Pain Scale 1 to 5 Hydrocodone Bitart/Acetaminophen 1 each 03/11/20 10:49 03/12/20 17:42 Hydrocodone/Apap 5-325mg 1 Each Tab PO 1 each Q6HR PRN Administration Pain Scale 1 to 5 Alprazolam 0.25 mg 03/09/20 20:17 Alprazolam 0.25 Mg Tab PO Q8H PRN Anxiety Benzocaine/Menthol 1 each 03/11/20 10:49 Benzocaine/Menthol Lozeng 1 Each Lozenge MUCOUS MEM Q4HR PRN Sore Throat Carbidopa/Levodopa 2 each 03/09/20 20:30 03/12/20 12:31 Carbidopa-Levodopa 25-100 Mg 1 Each Tab PO 2 each BID@0900,1300 CHRISTINE Administration Clobetasol Propionate 1 applic 03/13/20 09:00 Clobetasol Prop 0.05% Cr 15gm TOPICAL TUTH CHRISTINE Diltiazem HCl 180 mg 03/09/20 21:00 03/12/20 21:56 Diltiazem Cd 180 Mg Cap.Er.24h PO 180 mg HS CHRISTINE Administration Escitalopram Oxalate 10 mg 03/10/20 12:30 03/12/20 12:31 Escitalopram 10 Mg Tab PO 10 mg AC-LUNCH CHRISTINE Administration Guaifenesin 600 mg 03/09/20 21:00 03/12/20 21:57 Guaifenesin 600 Mg Tablet.Er PO 600 mg HS CHRISTINE Administration Hydralazine HCl 10 mg 03/09/20 20:19 Hydralazine Hcl 20 Mg/Ml 1 Ml Vial IVP Q4HR PRN Blood Pressure - High Hydrocortisone Acetate 25 mg 03/09/20 21:00 03/12/20 21:57 Hydrocortisone Suppository 25 Mg Supp RECTAL 25 mg HS CHRISTINE Administration Hydromorphone HCl 0.5 mg 03/09/20 15:59 03/11/20 05:14 Hydromorphone 0.5 Mg/0.5 Ml Syringe IVP 0.5 mg Q3HR PRN Administration Moderate Pain Hydromorphone HCl 0.5 mg 03/11/20 10:49 Hydromorphone 0.5 Mg/0.5 Ml Syringe IVP Q4HR PRN Pain Sodium Chloride 1,000 mls @ 40 mls/hr 03/11/20 11:00 03/12/20 17:38 Saline 0.9% IV Not Given .Q24H CHRISTINE Levothyroxine Sodium 75 mcg 03/10/20 06:00 03/13/20 05:21 Levothyroxine 75 Mcg Tab PO 75 mcg DAILY@0600 CHRISTINE Administration Lisinopril 20 mg 03/10/20 06:00 03/13/20 05:21 Lisinopril 20 Mg Tab PO 20 mg DAILY@0600 CHRISTINE Administration Magnesium Hydroxide 2,400 mg 03/11/20 10:49 Magnesium Hydroxide 2,400 Mg/10 Ml Cup PO DAILY PRN Constipation Miscellaneous Information 0 each 03/11/20 11:02 Warfarin Per Pharmacy MISCELLANE DIRECTED PRN PER PROTOCOL Naloxone HCl 0.2 mg 03/09/20 15:59 Naloxone 0.4 Mg/Ml 1 Ml Vial IV Q2M PRN Opioid Reversal Naloxone HCl 0.2 mg 03/11/20 10:49 Naloxone 0.4 Mg/Ml 1 Ml Vial IV Q2M PRN Opioid Reversal Non-Formulary Medication 10 mcg 03/09/20 21:00 03/12/20 21:57 Estradiol [Vagifem] VAGINAL Not Given MOWEFR [facility] Patient's Own ( 10 mg 03/10/20 17:30 03/12/20 17:42 Domperidone 10mg 10 PO 10 mg Mg) AC-TID CHRISTINE Administration Nystatin 1 applic 03/09/20 21:00 03/12/20 21:58 Nystatin 100,000 Unit/Gm Powd 15 Gm TOPICAL 1 applic BID CHRISTINE Administration Ondansetron HCl 4 mg 03/09/20 15:59 Ondansetron 4 Mg/2 Ml Vial IVP Q8HR PRN Nausea And Vomiting Ondansetron HCl 4 mg 03/09/20 20:17 Ondansetron 4 Mg Tab PO Q8H PRN Nausea Ondansetron HCl 4 mg 03/11/20 10:49 Ondansetron 4 Mg/2 Ml Vial IVP Q24HR PRN Nausea And Vomiting Pantoprazole Sodium 40 mg 03/10/20 07:30 03/12/20 08:10 Pantoprazole 40 Mg Tablet PO 40 mg AC-BRKFST CHRISTINE Administration Polyethylene Glycol 8.5 gm 03/11/20 09:00 03/11/20 14:34 Polyethylene Glycol 3350 17 Gm Powd.Pack PO Not Given Q72H CHRISTINE Potassium Chloride 10 meq 03/09/20 21:00 03/12/20 21:57 Potassium Chloride Er 10 Meq Tab.Er.Prt PO 10 meq BID CHRISTINE Administration Quetiapine Fumarate 25 mg 03/09/20 21:00 03/12/20 21:57 Quetiapine 25 Mg Tab PO 25 mg HS CHRISTINE Administration Tramadol HCl 50 mg 03/11/20 10:49 Tramadol 50 Mg Tab PO Q6HR PRN Pain Scale 1 to 5 Warfarin Sodium 2.5 mg 03/13/20 18:00 Warfarin 2.5 Mg Tab PO [id number] [facility] Protocol Warfarin Sodium 5 mg 03/11/20 18:00 03/12/20 17:42 Warfarin 5 Mg Tab PO 5 mg [email or web address] [facility] Administration Protocol Objective - Vital Signs Vital signs: Vital Signs Temp 98.4 F 03/13/20 07:30 Pulse 84 03/13/20 07:30 Resp 25 H 03/13/20 07:30 BP 105/68 03/13/20 07:30 Pulse Ox 96 03/13/20 07:30 Intake & Output 03/12/20 03/13/20 03/13/20 18:59 06:59 18:59 Intake Total 760 620 Output Total 200 100 Balance 560 520 Intake: Intake, IV Titration 300 320 Amount Sodium Chloride 0.9% 1, 300 320 000 ml @ 40 mls/hr IV . Q24H [facility] Rx#:[id number] Oral 460 300 Output: Urine 200 100 Other: Voiding Method Indwelling Catheter Indwelling Catheter # Voids 0 # Bowel Movements 0 - Exam -GENERAL: The patient is confused and more sleepy today. Not in acute distress. HEENT: Pupils are round and equally reacting to light. EOMI. No scleral icterus. No conjunctival pallor. Normocephalic, atraumatic. No pharyngeal erythema. No thyromegaly. CARDIOVASCULAR: S1 and S2 present. No murmurs, rubs, or gallops. PULMONARY: Chest is clear to auscultation, no wheezing or crackles. ABDOMEN: Soft, nontender, nondistended, normoactive bowel sounds. No palpable organomegaly. MUSCULOSKELETAL: No joint swelling or deformity. -EXTREMITIES: No cyanosis, clubbing, or pedal edema. Right hip wound is dry and clean with dressing is in place NEUROLOGICAL: Gross neurological examination did not reveal any focal deficits. SKIN: No rashes. no petechiae. - Labs CBC & Chem 7: 03/12/20 04:41 03/12/20 04:41 Labs: Abnormal Lab Results - Last 24 Hours (Table) 03/12/20 03/12/20 03/12/20 Range/Units 04:41 04:41 12:45 PT 19.4 H (9.9-11.9) sec INR 1.86 H (0.90-1.11) Est GFR (CKD-EPI)NonAf 58.7 L (60.0-200.0) BUN/Creatinine Ratio 25.56 H (12.00-20.00) Ratio Calcium 8.0 L (8.7-10.3) mg/dL Urine Appearance Cloudy H (Clear) Ur Specific Colp 1.036 H (1.001-1.035) Urine Protein 1+ H (Negative) Urine Ketones 3+ H (Negative) Urine Blood Moderate H (Negative) Ur Leukocyte Esterase Large H (Negative) Urine RBC 177 H (0-5) /hpf Urine WBC 90 H (0-5) /hpf Ur Squamous Epith Cells 5 H (0-4) /hpf Urine Bacteria Rare H (None) /hpf Hyaline Casts 9 H (0-2) /lpf Urine Mucus Many H (None) /hpf Microbiology - Last 24 Hours (Table) 03/10/20 20:47 Blood Culture - Preliminary Blood No Growth after 48 hours Assessment and Plan Assessment: Status post fall Right hip fracture status post intertrochanteric right hip screw placement Fever, possible acute urinary tract infection, present on admission metabolic encephalopathy secondary to above. On the top of her dementia Acute Gastroenteritis, mostly reactive History of Parkinson disease Dementia with chronic confusion Gastroesophageal reflux disease Hypertension Hyperlipidemia History of rheumatoid arthritis History of ascending aortic aneurysm History of fluid but to dimension Hypothyroidism History of gastroparesis Plan: This is a pleasant 84 years old female who presents with hip fracture status post right screw placement. Orthopedic team R following the case closely. Continue with pain management and DVT prophylaxis per Surgery team. Resume Coumadin and check INR. Continue with Rocephin and follow blood culture and urine culture Most likely patient has acute delirium on the top of her dementia. Given her severity of infection and complication her prognosis is very poor Labs and medication were reviewed.. Continue same treatment. Continue with symptomatic treatment. Resume home medication. Monitor lytes and vitals. DVT and GI prophylaxis. Further recommendations as per clinical course of the patient DVT prophylaxis: Coumadin GI Prophylaxis: Ppi PT/OT: Pending Prognosis is guarded
[2020-03-13] MEDS: CARBIDOPA-LEVODOPA 25-100 MG 1 EACH TAB PO SCH ×2 (08:34→13:47)
[2020-03-13] MEDS: POTASSIUM CHLORIDE ER 10 MEQ TAB.ER.PRT PO SCH ×2 (08:34→21:53)
[2020-03-13] MEDS: PANTOPRAZOLE 40 MG TABLET PO SCH (08:34)
[2020-03-13] MEDS: NYSTATIN 100,000 UNIT/GM POWD 15 GM TOPICAL SCH ×2 (08:35→21:54)
[2020-03-13] MEDS: DOMPERIDONE 10 MG PO SCH ×3 (08:36→18:17)
[2020-03-13] MEDS ORDERED: CLOBETASOL PROP 0.05% CR 15GM TOPICAL SCH (09:00)
[2020-03-13 09:14] LABS: INR 2.6 (0.90-1.11); Prothrombin Time 26.8 sec (9.9-11.9)
--- NOTE | 2020-03-13 12:46 | P.PN ---
Progress Note - Text Progress Note Date: 03/13/20 Orthopedics: History of present illness: Patient is a pleasant 84-year-old female with known dementia who is seen and examined at bedside for further evaluation of her right hip. She is status post right hip intramedullary nail fixation for intertrochanteric hip fracture performed on 03/12/2020. Patient had sustained a fall resulting in her hip fracture. Patient is not complaining of pain at the bedside. Her dressing over the right hip is clean, dry, and intact. Patient does have difficulty with following commands. She is able to wiggle toes of the eft foot today. She is not answering questions well. A Anderson catheter is intact. She is arousable but is not oriented to place or time. Continues to be seeing exam by medicine for her other medical diagnoses including history of Parkinson's disease, history of multiple falls, dementia, and acute urinary tract infection currently on antibiotic medication. A Pjwx-la-Mout was completed today for placement to a rehabilitation facility. This has been denied. Case management states they are filing an appeal. Patient does normally resides in a memory care unit with -7 care. Physical Exam Intramedullary Rodding for Intertrochanteric Fracture: Status post surgical day number 2 Patient is examined sitting upright in a bedside chair Patient is awake but does not answer questions appropriately She has difficulty following all commands Vital signs stable Adequate chest excursion with deep inspiration and expiration; patient currently on O2 nasal cannula No signs or symptoms of DVT; no calf pain Lower extremity cuffs in place bilaterally Dressing of the right hip is clean, dry, and intact; no erythema, purulence, or signs of infection Mild pain with palpation over the surgical sites Patient is able to wiggle toes of the right foot Patient is unable to follow commands to perform dorsiflexion and plantarflexion with the right foot Neurovascularly intact bilateral lower extremities Capillary refill less than 2 seconds bilateral lower extremities Assessment: Status post right intramedullary nail fixation for left intertrochanteric hip fracture Status post fall Parkinson's disease History of multiple falls Dementia Acute urinary tract infection currently on antibiotics Plan: 1. Patient to remain nonweightbearing on the right lower extremity; patient may work with physical therapy to increase mobility and ambulation 2. Keep dressing over the right hip clean, dry, and intact 3. Discontinue Anderson catheter when patient is able to increase mobility and ambulation 4. Continue pain control with oral tramadol and IV Dilaudid as needed for pain control 5. Continue with anticoagulation therapy with Coumadin as monitored by pharmacy 6. Medicine to continue following the patient for their other medical diagnosis including Parkinson's disease, dementia, frequent falls, and acute urinary tract infection 7. We'll continue to follow the patient closely. A [id number] was completed today and the patient was denied rehabilitation placement. An appeal has been ordered. Depending on the appeal, we may plan for discharge as early as tomorrow, 03/14/2020, to [facility] if she is approved. If the patient continues to be denied she will most likely plan to return to the Memory Care Unit where she resided previously. 8. Patient can follow-up with Michael Kenney PA-C or Dr. Deonte Mota at [facility] in 2-3 weeks following discharge
[2020-03-13] MEDS: SODIUM CHLORIDE 0.9% 1,000 ML IV SCH (13:49)
[2020-03-13] MEDS: ESCITALOPRAM 10 MG TAB PO SCH (13:49)
[2020-03-13] MEDS ORDERED: WARFARIN 2.5 MG TAB PO SCH (18:00)
[2020-03-13] MEDS: HYDROCORTISONE SUPPOSITORY 25 MG SUPP RECTAL SCH (21:53)
[2020-03-13] MEDS: QUEtiapine 25 MG TAB PO SCH (21:53)
[2020-03-13] MEDS: guaiFENesin 600 MG TABLET.ER PO SCH (21:53)
[2020-03-13] MEDS: DILTIAZEM CD 180 MG CAP.ER.24H PO SCH (21:54)
[2020-03-14] MEDS: LEVOTHYROXINE 75 MCG TAB PO SCH (05:38)
[2020-03-14] MEDS: lisinopriL 20 MG TAB PO SCH (05:38)
[2020-03-14] MEDS: polyethylene glycoL 3350 17 GM POWD.PACK PO SCH (08:37)
[2020-03-14] MEDS: CARBIDOPA-LEVODOPA 25-100 MG 1 EACH TAB PO SCH ×2 (08:38→13:36)
[2020-03-14] MEDS: ACETAMINOPHEN TAB 500 MG TAB PO PRN ×2 (08:38→13:41)
[2020-03-14] MEDS: PANTOPRAZOLE 40 MG TABLET PO SCH (08:38)
[2020-03-14] MEDS: POTASSIUM CHLORIDE ER 10 MEQ TAB.ER.PRT PO SCH (08:38)
[2020-03-14] MEDS: DOMPERIDONE 10 MG PO SCH ×2 (08:39→13:40)
[2020-03-14] MEDS: NYSTATIN 100,000 UNIT/GM POWD 15 GM TOPICAL SCH (08:58)
[2020-03-14 09:18] LABS: INR 2.77 (0.90-1.11); Prothrombin Time 28.5 sec (9.9-11.9)
[2020-03-14] MEDS ORDERED: AMOXIC-POT CLAV 500-125 MG 1 EACH TAB PO STA (09:51)
--- NOTE | 2020-03-14 11:32 | P.DS ---
Providers Date of admission: 03/09/20 15:47 Expected date of discharge: 03/14/20 Attending physician: Joseph Mota Consults: 03/09/20 16:01 Consult Physician Routine Consulting Provider: Lola Gomes Consult Reason/Comments: medical consult, hypertension Do you want consulting provider notified?: Yes Primary care physician: Scarlet Maldonado - Discharge Diagnosis(es) (1) Intertrochanteric fracture of right femur Current Visit: Yes Status: Acute (2) Hip pain, right Current Visit: Yes Status: Acute (3) Status post fall Current Visit: Yes Status: Acute (4) Parkinson's disease Current Visit: Yes Status: Acute (5) Dementia Current Visit: Yes Status: Acute (6) Acute urinary tract infection Current Visit: Yes Status: Acute (7) Status post hip surgery Current Visit: Yes Status: Acute Hospital Course: This is a pleasant 84-year-old female with known dementia and Parkinson's disease with history of multiple falls who presented with right hip pain and right intratrochanteric hip fracture status post fall. She was admitted for further treatment and evaluation. She underwent a right hip intramedullary nail fixation for right intertrochanteric hip fracture on 03/11/2020. The patient tolerated the procedure well and did well postoperatively. The pain in the right hip is adequately controlled. Patient does have difficulty answering questions due to her known dementia. She is more awake and alert today and is answering some questions at the bedside today. She is a 2 person assist. She has been approved through an appeal for discharge to a rehabilitation facility. From an orthopedic standpoint, patient is clear for discharge. Condition on day of discharge stable. Patient will be discharged [facility]. Patient is continuing be seen and examined by medicine. She is being treated for an acute urinary tract infection by medicine. Patient was cleared preoperatively for surgery by Dr. Gomes. Patient does not currently have any complaints at the bedside Patient may shower Optifoam dressing intact. Patient may remove Optifoam dressing in 3 days and shower without a dressing at that time. Patient will remain nonweightbearing on the right lower extremity. She is encouraged to continue working with physical therapy to increase mobility and ambulation. She may use a walker or other walking as needed to aid in ambulation. She will be cleared for discharge from an orthopedic standpoint pending clearance by medicine. Medicine will continue to complete the medical record prior to discharge to [facility]. We will plan to prescribe pain medication. We'll plan for medicine to prescribe antibiotic medication for her acute urinary tract infection as well as post-operative anticoagulation. MAPS has been reviewed today, 03/14/2020 , with an Overall Overdose Risk Score of . Opioid form was not filled out with the patient as the patient cannot cognitively read or understand that document. A prescription has been written for Krypton 5 mg/25 mg 1 tablet every 6 hours as needed for pain, dispensed #28. Physical Exam on day of discharge: Status post surgical day number 3 Patient is examined sitting upright in bed Patient is awake and alert today and is able to answer some questions appropriate follow some commands She has difficulty following all commands Vital signs stable Adequate chest excursion with deep inspiration and expiration; patient currently on O2 nasal cannula No signs or symptoms of DVT; no calf pain Lower extremity cuffs in place bilaterally Dressing of the right hip is clean, dry, and intact; no erythema, purulence, or signs of infection No significant pain with palpation over the surgical sites Patient is able to wiggle toes of the feet bilaterally Patient is able to perform some active dorsiflexion and plantar flexion with the right lower extremity Neurovascularly intact bilateral lower extremities Capillary refill less than 2 seconds bilateral lower extremities Procedures: Right intramedullary nail fixation for right intertrochanteric hip fracture Patient Condition at Discharge: Stable Plan - Discharge Summary Discharge Rx Participant: No New Discharge Prescriptions: New HYDROcodone/APAP 5-325MG [Krypton 5] 1 each PO Q6HR PRN #28 tab PRN Reason: Pain No Action Ondansetron [Zofran] 4 mg PO Q8H PRN PRN Reason: Nausea lisinopriL [Prinivil] 20 mg PO DAILY@0600 Levothyroxine Sodium [Synthroid] 75 mcg PO DAILY@0600 Membrasin 2 cap PO DAILY Carbidopa-Levodopa 25-100 mg [Sinemet 25-100 mg] 2 tab PO BID@0900,1300 Diltiazem Cd [Cardizem CD] 180 mg PO HS Escitalopram [Lexapro] 10 mg PO AC-LUNCH guaiFENesin [Mucinex] 600 mg PO HS Mineral Oil 2 drops BOTH EARS MOFR Polyethylene Glycol 3350 [Miralax] 8.5 gm PO Q72H Warfarin [Coumadin] 5 mg PO SUMOWETHSA Domperidone 10mg 10 mg PO AC-TID [employer] 1 tab PO AC-SUPPER Potassium Chloride ER [K-Dur 10] 10 meq PO BID QUEtiapine [SEROquel] 25 mg PO HS Warfarin [Coumadin] 2.5 mg PO TUFR Ensure 1 can PO DAILY Clobetasol Propionate [Temovate 0.05% Cream] 1 applic VAGINAL TUTH ALPRAZolam [Xanax] 0.25 mg PO Q8H PRN PRN Reason: Anxiety Acetaminophen [Tylenol] 500 mg PO Q6H PRN PRN Reason: Pain Nystatin 100,000 Unit/gm Powd [Mycostatin Powder] 1 applic TOPICAL BID Hydrocortisone Acetate [Anusol-Hc] 25 mg RECTAL HS Estradiol [Vagifem] 10 mcg VAGINAL MOWEFR Discharge Medication List Levothyroxine Sodium [Synthroid] 75 mcg PO DAILY@0600 04/04/14 [History] Ondansetron [Zofran] 4 mg PO Q8H PRN 04/04/14 [History] lisinopriL [Prinivil] 20 mg PO DAILY@0600 04/04/14 [History] Carbidopa-Levodopa 25-100 mg [Sinemet 25-100 mg] 2 tab PO BID@0900,1300 08/04/18 [History] Diltiazem Cd [Cardizem CD] 180 mg PO HS 08/04/18 [History] Escitalopram [Lexapro] 10 mg PO AC-LUNCH 08/04/18 [History] Membrasin 2 cap PO DAILY 08/04/18 [History] Mineral Oil 2 drops BOTH EARS MOFR 08/04/18 [History] Polyethylene Glycol 3350 [Miralax] 8.5 gm PO Q72H 08/04/18 [History] Warfarin [Coumadin] 5 mg PO SUMOWETHSA 08/04/18 [History] guaiFENesin [Mucinex] 600 mg PO HS 08/04/18 [History] Domperidone 10mg 10 mg PO AC-TID 12/23/19 [History] Midnite Sleep Aid 1 tab PO AC-SUPPER 12/23/19 [History] Potassium Chloride ER [K-Dur 10] 10 meq PO BID 12/23/19 [History] QUEtiapine [SEROquel] 25 mg PO HS 12/23/19 [History] Warfarin [Coumadin] 2.5 mg PO TUFR 12/23/19 [History] ALPRAZolam [Xanax] 0.25 mg PO Q8H PRN 03/09/20 [History] Acetaminophen [Tylenol] 500 mg PO Q6H PRN 03/09/20 [History] Clobetasol Propionate [Temovate 0.05% Cream] 1 applic VAGINAL TUTH 03/09/20 [History] Ensure 1 can PO DAILY 03/09/20 [History] Estradiol [Vagifem] 10 mcg VAGINAL MOWEFR 03/09/20 [History] Hydrocortisone Acetate [Anusol-Hc] 25 mg RECTAL HS 03/09/20 [History] Nystatin 100,000 Unit/gm Powd [Mycostatin Powder] 1 applic TOPICAL BID 03/09/20 [History] HYDROcodone/APAP 5-325MG [Krypton 5] 1 each PO Q6HR PRN #28 tab 03/14/20 [Rx] Follow up Appointment(s)/Referral(s): Scarlet Maldonado MD [Primary Care Provider] - 1-2 days Michael Kenney PAC [PHYSICIAN CLASSIFYING MACHINE OPERATOR] - 2 Weeks (Patient may follow-up with Michael Kenney PA-C or Dr. Deonte Mota at [facility] in 2-3 weeks following discharge. ) Patient Instructions/Handouts: Hip Fracture (ED) Activity/Diet/Wound Care/Special Instructions: Opal 1. Patient to remain nonweightbearing on the right lower extremity 2. Encouraged to use a walker and the assistance of physical therapy to increase mobility and ambulation 3. Keep dressing on right hip pain clean, dry, intact 4. Patient may shower with dressing over the right hip intact 5. Take medications as prescribed 6. Do not soak until Discharge Disposition: TRANSFER TO SNF/ECF
[2020-03-14 11:52] VITALS: BP 108/65; PULSE 92; RESP 17; TEMP 98.6
--- NOTE | 2020-03-14 12:33 | US ---
EXAMINATION TYPE: US renals and bladder DATE OF EXAM: 03/14/2020 COMPARISON: NONE CLINICAL HISTORY: uti. UTI limited due to patient unable to roll EXAM MEASUREMENTS: Right Kidney: 9.2 x 4.1 x 3.4 cm Left Kidney: 8.8 x 4.8 x 2.9 cm Right Kidney: No hydronephrosis or masses seen Left Kidney: No hydronephrosis or masses seen Bladder: Cathter in place Bilateral Jets seen: No There is no evidence for hydronephrosis at this point in time. No nephrolithiasis is seen. No eli s are identified on images saved.Some increased cortical echogenicity bilaterally. Cannot evaluate bl adder due to Anderson catheterization. IMPRESSION: No hydronephrosis noted bilaterally.
[2020-03-14] MEDS: ESCITALOPRAM 10 MG TAB PO SCH (13:41)
[2020-03-14] MEDS ORDERED: AMOXIC-POT CLAV 875-125MG 1 EACH TAB PO SCH (21:00)
--- NOTE | 2020-03-15 07:45 | P.PN ---
Subjective This is a pleasant 84 years old female with multiple medical problems was admitted under orthopedic service for a fall at right hip fracture status post right intertrochanteric hip screw placement. Today postop day #1. She is lying in bed comfortable, looks confused but, and she follows commands. She denies pain or any distress. She is slightly tachypneic but THAT is to be coughing. Abdomen looks soft although she has some loose bowel movement. Not sure about her urinary complaints. She had low-grade temperature yesterday of 101.2. Carlyle watkins is already started on Rocephin. And no source of infection could be UTI however her urinalysis is not very impressive for UTI although it has increased obesity 15 per high-power field. Repeat UA and asked for chest x-ray. We will lower her normal saline from 75 down to 40 mL per hour. She remains on Coumadin for her history of DVT and her INR is 1.4. And 1.8 Continue with Coumadin 03/13/2020 She needs more sleepy today and her to wake up, most likely patient is delirious from her infection. She had a fever of 101.22 nights ago, no more fever since yesterday. Rest of vitals are stable. Repeat UA is highly suspicious of infection. Urine culture is pending. Chest x-ray favors left lower lobe atelectasis over pneumonia. Lacie better yesterday is 1.8. Today is pending and we will follow up the result with the plan to continue with Coumadin. Continue with Rocephin for now on follow-up urine culture not blood culture. 03/14/2020 Patient is fully awake and oriented to the surrounding, she still appears at baseline due to her dementia. She denies any physical complaints, no chest pain or dyspnea, no abdominal pain, no suprapubic tenderness, she denies dysuria or change in frequency Her right hip wound is healing and clean as she is status post intertrochanteric screw placement for her right hip fracture, orthopedic team are planning to discharge the patient today to [facility]CF, as per my discussion with social media marketing specialist patient needs to go to her ECF today otherwise she will lose her bed. However patient looks clinically stable She had low-grade temperature when day earlier but she's been afebrile since then, rest of vitals stable and she is hemodynamically stable WBC is normal upon discharge and trending down to 6.2k, creatinine is normal at 0.9, rest of labs are stable. Urine culture is growing enterococcus urinae, which is sensitive to all antibiotics as per lap, dizziness documented ALLERGIC to penicillin causing hives/rash, tinnitus dose of Augmentin as given to the patient this morning prior to discharge and patient is monitored for more than an hour with no ALLERGIC reaction noted Patient is medically stable to go back to [facility], I called her physician who is going to take care of her at the [facility] Dr. Zamorano and discussed the case with her the need for close monitoring and he Note of this She is on Coumadin for history of DVT and INR is stable at 2.7 Review of systems CONSTITUTIONAL: No fever, no malaise, no fatigue. HEENT: No recent visual problems or hearing problems. Denied any sore throat. CARDIOVASCULAR: No orthopnea, PND, no palpitations, no syncope. PULMONARY: No shortness of breath, no cough, no hemoptysis. GASTROINTESTINAL: No diarrhea, no nausea, no vomiting, no abdominal pain. Normoactive bowel sounds. NEUROLOGICAL: No headaches, no weakness, no numbness. Medication reversed and she is on Tylenol, Chase, Dilaudid, lisinopril, magnesium hydroxide, naloxone, nystatin, Zofran, Ultram, Augmentin and warfarin Objective - Vital Signs Vital signs: Vital Signs Temp 98.6 F 03/14/20 11:51 Pulse 92 03/14/20 11:51 Resp 17 03/14/20 11:51 BP 108/65 03/14/20 11:51 Pulse Ox 97 03/14/20 11:51 Intake & Output 03/13/20 03/14/20 03/14/20 18:59 06:59 18:59 Intake Total 100 Output Total 300 300 600 Balance -300 -200 -600 Intake: Oral 100 Output: Urine 300 300 600 Uretheral (Anderson) 300 Other: Voiding Method Indwelling Catheter Indwelling Catheter Indwelling Catheter # Voids 2 - Exam -GENERAL: The patient is confused and more sleepy today. Not in acute distress. HEENT: Pupils are round and equally reacting to light. EOMI. No scleral icterus. No conjunctival pallor. Normocephalic, atraumatic. No pharyngeal erythema. No thyromegaly. CARDIOVASCULAR: S1 and S2 present. No murmurs, rubs, or gallops. PULMONARY: Chest is clear to auscultation, no wheezing or crackles. ABDOMEN: Soft, nontender, nondistended, normoactive bowel sounds. No palpable organomegaly. MUSCULOSKELETAL: No joint swelling or deformity. -EXTREMITIES: No cyanosis, clubbing, or pedal edema. Right hip wound is dry and clean with dressing is in place NEUROLOGICAL: Gross neurological examination did not reveal any focal deficits. SKIN: No rashes. no petechiae. - Labs CBC & Chem 7: 03/12/20 04:41 03/12/20 04:41 Labs: Abnormal Lab Results - Last 24 Hours (Table) 03/14/20 Range/Units 04:48 PT 28.5 H (9.9-11.9) sec INR 2.77 H (0.90-1.11) Microbiology - Last 24 Hours (Table) 03/10/20 20:47 Blood Culture - Preliminary Blood No Growth after 72 hours 03/10/20 21:04 Urine Culture - Final Urine,Catheterized Aerococcus urinae Assessment and Plan Assessment: Status post fall Right hip fracture status post intertrochanteric right hip screw placement acute urinary tract infection, present on admission , improvement and discharged on metabolic encephalopathy secondary to above. On the top of her dementia . Improved and patient is back to normal mental baseline Acute Gastroenteritis, mostly reactive. Resolved prior to discharge History of Parkinson disease Dementia with chronic confusion Gastroesophageal reflux disease Hypertension Hyperlipidemia History of rheumatoid arthritis History of ascending aortic aneurysm History of fluid but to dimension Hypothyroidism History of gastroparesis Plan: This is a pleasant 84 years old female who presents with hip fracture status post right screw placement. Orthopedic team R following the case closely. Continue with pain management and DVT prophylaxis per Surgery team. Resume Coumadin and check INR. Continue with Augmentin upon discharge. Follow-up with her physician/Dr. Zamorano at the [facility] Patient mentation improved back to baseline, patient is medically stable and she can move back to [facility] with close outpatient monitoring symptomatic treatment. Resume home medication. Monitor lytes and vitals. DVT and GI prophylaxis. Further recommendations as per clinical course of the patient DVT prophylaxis: Coumadin GI Prophylaxis: Ppi Discussed with staff
== END 2020-03-14 16:11 | DRG 480 ==
LOC: EC 12:52 → 6NMEDSUR 15:47
PROVIDERS: ADMIT Orthopaedic Surgery Orthopaedic Surgery of the Spine; ATTEND Orthopaedic Surgery Orthopaedic Surgery of the Spine
PROC: 0QH604Z Insertion of Internal Fixation Device into Right Upper Femur, Open Approach (ICD-10-PCS; principal; 2020-03-11 10:30)
DX: S72.141A Displaced intertrochanteric fracture of right femur, initial encounter for closed fracture (principal); G93.41 Metabolic encephalopathy; D68.51 Activated protein C resistance; N39.0 Urinary tract infection, site not specified; J98.11 Atelectasis; E03.9 Hypothyroidism, unspecified; E66.9 Obesity, unspecified; E78.5 Hyperlipidemia, unspecified; I10 Essential (primary) hypertension; M06.9 Rheumatoid arthritis, unspecified; Z20.828 Contact with and (suspected) exposure to other viral communicable diseases; W18.30XA Fall on same level, unspecified, initial encounter; M47.9 Spondylosis, unspecified; G31.83 Neurocognitive disorder with Lewy bodies; F02.80 Dementia in other diseases classified elsewhere, unspecified severity, without behavioral disturbance, psychotic disturbance, mood disturbance, and anxiety; K31.84 Gastroparesis; I71.2 Thoracic aortic aneurysm, without rupture; K52.9 Noninfective gastroenteritis and colitis, unspecified; D32.9 Benign neoplasm of meninges, unspecified; K21.9 Gastro-esophageal reflux disease without esophagitis; Z79.01 Long term (current) use of anticoagulants; Z79.899 Other long term (current) drug therapy; Z79.890 Hormone replacement therapy; Z88.0 Allergy status to penicillin; Z88.2 Allergy status to sulfonamides; Z88.8 Allergy status to other drugs, medicaments and biological substances; Z88.1 Allergy status to other antibiotic agents; Z91.041 Radiographic dye allergy status; Z90.49 Acquired absence of other specified parts of digestive tract; Z90.89 Acquired absence of other organs; Z98.890 Other specified postprocedural states; Z82.49 Family history of ischemic heart disease and other diseases of the circulatory system; Z86.19 Personal history of other infectious and parasitic diseases; Z86.718 Personal history of other venous thrombosis and embolism; Z91.81 History of falling
CPT/HCPCS: 36415; 70450; 71045; 72125; 73501; 73502; 76770; 80048; 80053; 81001; 85025; 85610; 85730; 87040; 87086; 88304; 88311; 93005; 96374; 96375; 99285